=== PATIENT | female | born 1955 | race Caucasian/White ===

== ENCOUNTER 2016-05-03 20:27 | Outpatient (CLI) ==
[2016-05-03 20:53] VITALS: BMI 17.6
== END 2016-05-03 20:28 | disposition home or self-care (01) ==
LOC: AMBL 20:27
PROVIDERS: ATTEND Family Medicine
DX: R52 Pain, unspecified (principal); R69 Illness, unspecified; R41.0 Disorientation, unspecified; J44.9 Chronic obstructive pulmonary disease, unspecified

== ENCOUNTER 2016-05-03 20:39 | Emergency (ER) | payer OTHER ==
[2016-05-03] MEDS ORDERED: SODIUM CHLORIDE 1,000 ML IV STA ×2 (20:45)
[2016-05-03 20:53] VITALS: BP 94/65; TEMP 96; BMI 17.6
[2016-05-03] MEDS ORDERED: URO-JET MUCOUSMEMB STA (20:54)
[2016-05-03 21:05] LABS: ABG BASE EXCESS 7 (-2.0-2.0); ABG HCO3 29.9 (22.0-26.0); ABG PCO2 35.4 mmHg (35-45); ABG PH 7.534 (7.35-7.45); ABG TCO2 31 (22.0-28.0)
[2016-05-03 21:20] LABS: BASOPHILS # (AUTO) 0.1 K/uL (0-0.2); BASOPHILS % (AUTO) 0.2 % (0.0-3.0); EOSINOPHILS % (AUTO) 0.1 % (0.0-7.0); HEMATOCRIT 33.2 % (37.0-47.0); HEMOGLOBIN 10.6 g/dl (12.0-16.0); LYMPHOCYTES # (AUTO) 1.6 K/uL (0.60-3.4); LYMPHOCYTES % (AUTO) 4.4 (10.0-50.0); MEAN CORPUSCULAR HEMOGLOBIN 28.1 pg (27.0-31.0); MEAN CORPUSCULAR HGB CONC 31.9 (31.8-35.4); MEAN CORPUSCULAR VOLUME 88.1 fl (81.0-99.0); MONOCYTES # (AUTO) 1.9 K/uL (0.4-2.0); MONOCYTES % (AUTO) 5.1 (0-10); NEUTROPHILS % (AUTO) 88.2; PLATELET COUNT 855 10^3/uL (140-440); RED BLOOD COUNT 3.77 10^6/ul (4.20-5.40)
[2016-05-03 21:24] LABS: WHITE BLOOD COUNT 37.39 K/ul (4.6-10.2)
[2016-05-03] MEDS ORDERED: ZOSYN 3.375 GM 3.375 GM in SODIUM CHLORIDE 100 ML IV STA (21:28)
[2016-05-03 21:31] LABS: FLU INTERNAL QC INTERNAL QC VALID; RAPID FLU A NEGATIVE (NEGATIVE); RAPID FLU B NEGATIVE (NEGATIVE)
[2016-05-03 21:32] LABS: ADD URINE MICROSCOPIC YES; BILIRUBIN,URINE Negative (NEGATIVE); KETONES,URINE Negative (NEGATIVE); LEUKOCYTE ESTERASE ,URINE Negative (NEGATIVE); NITRITE,URINE Positive (NEGATIVE); PROTEIN,URINE Trace (NEGATIVE); URINE, BLOOD Negative (NEGATIVE)
[2016-05-03 21:32] LABS: ALBUMIN 1.7 g/dL (3.4-5.0); ALBUMIN/GLOBULIN RATIO 0.35; ANION GAP 22.3; BILIRUBIN,TOTAL 0.4 mg/dL (0.00-1.20); BUN/CREATININE RATIO 34.52; CALCIUM 8.5 mg/dL (8.2-10.2); CREATININE 0.84 mg/dL (0.60-1.30); POTASSIUM 3.3 mmol/L (3.5-5.10); TOTAL PROTEIN 6.6 g/dL (5.8-8.1)
[2016-05-03 21:33] LABS: BACTERIA,URINE 4+ (NOT PRESENT)
[2016-05-03 21:43] LABS: COCAIN SCREEN,URINE NEGATIVE (NEGATIVE)
[2016-05-03 21:45] LABS: ERYTHROCYTE SEDIMENTATION RATE 94 mm/hr (0-20); ESR INTERNAL QC INTERNAL QC VALID
[2016-05-03 22:08] LABS: ACETAMINOPHEN < 3 ug/ml (10-30); SALICYLATE < 5.0 mg/dL (2.8-20.0)
--- NOTE | 2016-05-03 22:21 | CT ---
EXAM: CT head without contrast 04/18/2016. Sagittal and coronal reformatted images obtained HISTORY: Trauma COMPARISON: None. FINDINGS: There is no evidence of intracranial hemorrhage. The midline is maintained. There is no hydrocephalus. Diffuse generalized atrophy. Chronic small vessel ischemic changes. No cerebellar tonsillar ectopia. Evaluation of the calvarium shows no fracture. The mastoid air cells are normal ly pneumatized. IMPRESSION: 1. No acute intracranial process. There is no skull fracture. No intracranial hemorrhage. 2. Generalized atrophy. Chronic small vessel ischemic changes. 3. Defects within the anterior and posterior arch of C1. Please refer to report of same day CT cer vical spine.
--- NOTE | 2016-05-03 22:29 | CT ---
EXAM: CT thoracic spine without intravenous contrast 05/03/2016. Sagittal and coronal reformatted images obtained HISTORY: Trauma COMPARISON: None. FINDINGS: Emphysematous changes. There is a large area of consolidation within the superior aspect of the left lower lobe. There are multiple areas of cavitation throughout this region. Further ev aluation of the chest would be of benefit. Additional areas of infiltrate extend through the left upper lobe as well as the left lung base. Kyphotic curve of the thoracic spine. Multilevel degenerative disc disease. Multilevel chronic deg enerative endplate change. Bulky anterior osteophyte formation. Anterior wedging configuration wit hin multiple central thoracic vertebral bodies appears chronic. The facet joints align normally. Scoliotic curvature with convexity to the right appears chronic. IMPRESSION: 1. Severe emphysema. 2. Consolidation and throughout the superior aspect the left lower lobe. There are multiple areas of cavitation throughout this region. Additional infiltrate extends through the left upper lobe and left lung base. Differential considerations include a cavitary pneumonia including bacterial, chriss al and mycobacterial process. Cavitary neoplasm cannot be excluded. Further evaluation of the ches t would be of benefit. 3. Severe degenerative changes of the thoracic spine. Multilevel severe degenerative endplate [place] ge. Chronic appearing end plate defects. Multilevel anterior wedging configuration appears chronic . 4. No acute post traumatic osseous abnormality of the thoracic spine.
--- NOTE | 2016-05-03 22:29 | CT ---
EXAM: Noncontrast CT examination of the cervical spine. Comparison: Radiographs performed on 03/30/2013. Reason for study: Trauma. FINDINGS: There are well corticated irregularities of the anterior and posterior arch of C1 likely healed fractures. Anterior cervical discectomy and fusion construct is seen spanning C3 to C6. The re is a 3 mm of anterior subluxation of the ACDF construct on the C7 vertebral body that does not ap pear significantly changed when compared to the radiographs performed on 03/30/2013. Imaging is dav ewhat limited due to diffuse osteopenia and artifact from metallic hardware. Otherwise, the vertebra l body heights and intervertebral body disc space heights are relatively well maintained. There is maintenance of the cervical lordosis without abnormal prevertebral soft tissue swelling. IMPRESSION: 1. Corticated, cortical irregularities are seen in the anterior and posterior arch of C1 that likel y represent healed fractures. 2. No obvious acute fracture or subluxation in the cervical spine.
--- NOTE | 2016-05-03 22:36 | CT ---
EXAM: CT chest without intravenous contrast 05/03/2016. Sagittal and coronal reformatted images ob tained HISTORY: Cough and hemoptysis COMPARISON: 11/30/2012 FINDINGS: Severe emphysematous change. The heart size is within normal limits. No pericardial eff usion. Consolidation is present throughout the superior portion of the left lower lobe. There are multiple areas of cavitation. Additional infiltrate extends into the left upper lobe as well as a left lung base. Differential considerations include cavitary pneumonia as well as neoplasm. Upper normal-caliber mediastinal lymphadenopathy. This is indeterminate. No acute osseous abnormality. Severe degenerative disc disease and degenerative endplate change of the thoracic spine. Limited views of the upper abdomen show no acute process. IMPRESSION: 1. Consolidation at the superior aspect of the left lower lobe. Multifocal cavitation. Differenti al considerations include cavitary pneumonia including bacterial, fungal and mycobacterial process. Cavitary neoplasm is not excluded. 2. Additional infiltrate extends into the left upper lobe and left lung base. 3. Indeterminate mediastinal lymphadenopathy. 4. Consolidation is also present within this region on chest radiograph performed 11/30/2012.
--- NOTE | 2016-05-03 22:36 | CT ---
EXAM: CT lumbar spine without contrast. HISTORY: Trauma COMPARISON: Same day CT pelvis TECHNIQUE: Serial axial images of the spine were obtained from the lower thoracic spine through the pelvis without contrast. These were viewed in multiple planes. FINDINGS: Vertebral bodies demonstrate multilevel degenerative disease with disc space narrowing at L4 - L5 and L5-S1. There is 0.4 cm of anterolisthesis of L3 on L4. There is significant facet art hropathy throughout the lumbosacral spine. The posterior and transverse processes are normal. L1-L2: There is a small broad-based disc bulge with facet arthropathy and no central or neural lobo inal narrowing. L2-L3: Broad-based disc bulge and facet arthropathy with no significant central or neural foraminal narrowing. L3-L4: Broad-based disc bulge, facet arthropathy and anterior listhesis contribute to moderate centr al narrowing and bilateral moderate to severe narrowing of the neural foramen. L4-L5: Broad-based disc bulge and facet arthropathy contribute to mild central and bilateral neural foraminal narrowing. L5-S1: Broad-based disc bulge with facet arthropathy contribute to bilateral moderate neural foramin al narrowing. Limited views of the soft tissues demonstrate emphysematous disease of the lungs and minimal left ba silar ground-glass. There is moderate atherosclerotic disease.. IMPRESSION: 1. No compression fracture with grade 1 anterolisthesis of L3 on L4. 2. Multilevel degenerative disease with facet arthropathy, most pronounced at L3-L4 with moderate c entral and bilateral moderate to severe neural foraminal narrowing. If further evaluation is clinic ally indicated, MRI may be obtained.
--- NOTE | 2016-05-03 22:41 | CT ---
Examination: Noncontrasted CT examination of the pelvis with axial, sagittal, and coronal reformatt ed imaging. Comparison: None available. Reason for study: Right hip pain after fall. FINDINGS: There is a displaced intertrochanteric fracture of the right femoral neck with adjacent s oft tissue swelling. No apparent dislocation is seen within the right hip. The right femoral head articulates with the bony acetabulum. No other acute osseous injuries are seen. The pelvic ring and left hip are unremarkable save for degenerative changes posterior to the iliac wings. There is atherosclerotic disease of the aorta and distal arterial vasculature. A Marte catheter bal loon is in place. Operative changes are seen within the pelvis. Degenerative disease of the lumbosac ral spine with loss of intervertebral body disc space height anterior and posterior arthrosis with f acet hypertrophy. Impression: 1. Displaced right intertrochanteric femur fracture. 2. No other acute osseous injuries are seen within the pelvis. 3. Degenerative disease of the lumbosacral spine and pelvis with atherosclerotic disease of the abd ominal vasculature. Imaging findings were faxed to [facility] emergency department at 2236 hours on the day of examination.
--- NOTE | 2016-05-03 22:56 | ED.PDOC ---
General ED Provider: Dr. GEREMIAS GARNETT-ER Chief Complaint: Non-specific Complaint Stated Complaint: shes coughing up blood and not eating--she fell and hurt her hip Time Seen by Physician: 20:40 Mode of Arrival: Ambulance Information Source: Patient, Family, EMT Exam Limitations: No limitations Primary Care Provider: NÉSTOR RON Nursing and Triage Documentation Reviewed and Agree: Yes Respiratory Complaint Exam - Respiratory Complaint/Exam Onset/Duration: 2 dasy Symptoms Are: Still present Timing: Constant Initial Severity: Mild Current Severity: Moderate Location: Unknown Character: Reports: Productive cough Aggravating: Reports: URI Alleviating: Reports: None Associated Signs and Symptoms: Reports: Fever, Wheezing, Hemoptysis, URI, Decreased oral intake. Denies: Rapid breathing, Dyspnea, Chills, Chest pain, Pleuritic chest pain, Dizziness, Calf pain, Calf swelling, Edema, Nasal congestion, Hoarseness, Sinus discomfort, Vomiting, Sore throat, Weight loss, Increased thirst, Increased appetite, Increased urination History of Healthcare-Acquired Pneumonia: No Related Surgical History: Reports: None Pulmonary Embolism Risk Factors: None Cardiac Risk Factors: Reports: Smoking Pseudomonas Risk Factors: Reports: None Tuberculosis Risk Factors: Reports: None Status Asthmaticus Risk Factors: Reports: None Home Oxygen Use: No Recent Stress Test: No Recent Echo/LV Function: No Current Antibiotic Use: No Current Asthma Medication Use: No Inadequate Respiratory Effort: No Dysphagia Present: No Stridor Present: No JVD Present: No Accessory Muscle Use: No Diminished Breath Sounds: Yes Grunting Respirations: No Kussmaul Respirations: No Differential Diagnoses: COPD Exacerbation, Pneumonia Non-Traumatic Chest Pain Syncope: EKG Performed Review of Systems - Review Of Systems Constitutional: Reports: No symptoms Eyes: Reports: No symptoms Ears, Nose, Mouth, Throat: Reports: No symptoms Respiratory: Reports: Cough Cardiac: Reports: No symptoms GI: Reports: No symptoms : Reports: No symptoms Musculoskeletal: Reports: Joint pain Skin: Reports: No symptoms Neurological: Reports: No symptoms Endocrine: Reports: No symptoms Hematologic/Lymphatic: Reports: No symptoms All Other Systems: Reviewed and Negative Past Medical History - Past Medical History Previously Healthy: Yes Endocrine: Reports: Unknown Cardiovascular: Reports: Unknown Respiratory: Reports: Unknown Hematological: Reports: Unknown Gastrointestinal: Reports: Unknown Genitourinary: Reports: Unknown Neuro/Psych: Reports: Unknown Musculoskeletal: Reports: Unknown Cancer: Reports: Unknown Last Menstrual Period: UNK - Surgical History General Surgical History: Reports: Unknown - Family History Family History: Reports: Unknown - Social History Smoking Status: Current every day smoker Hx Substance Use: No Alcohol Screening: None Physical Exam - Physical Exam Appearance: Well-appearing, No pain distress, Well-nourished Pain Distress: Mild Eyes: EFRA, EOMI, Conjunctiva clear ENT: Ears normal, Nose normal, Oropharynx normal Neck: Supple Respiratory: Airway patent, Breath sounds equal, Respirations nonlabored, Crackles, Rhonchi Cardiovascular: RRR, Pulses normal, No rub, No murmur GI/: Soft, Nontender, No masses, Bowel sounds normal, No Organomegaly Musculoskeletal: Normal strength, ROM intact, No edema, No calf tenderness Skin: Warm Neurological: Sensation intact Psychiatric: Affect appropriate, Mood appropriate Interpretation - Radiology Interpretation Radiology Interpretation By: Radiologist Radiology Results: Positive Exam Interpreted: CT Scan Physician Notification - Case Discussed Physician Notified: dr ron Time of Notification: 22:57 Critical Care Note - Critical Care Note Total Time (mins): 15 Course - Course Hematology/Chemistry: 05/03/16 21:00 05/03/16 21:00 Orders, Labs, Meds: Lab Review 05/03/16 05/03/16 05/03/16 20:00 20:43 21:00 WBC 37.39 H RBC 3.77 L Hgb 10.6 L Hct 33.2 L MCV 88.1 MCH 28.1 MCHC 31.9 RDW Coeff of Simona 16.8 H Plt Count 855 H Immature Gran % (Auto) 2.0 Neut % (Auto) 88.2 Lymph % (Auto) 4.4 L [place] % (Auto) 5.1 Eos % (Auto) 0.1 Baso % (Auto) 0.2 Immature Gran # (Auto) 0.7 Neut # 33.0 H Lymph # 1.6 [place] # 1.9 Eos # 0.0 Baso # 0.1 ESR 94 H D-Dimer 1.82 Puncture Site Lb O2 Saturation 87.0 L ABG pH 7.534 H* ABG pCO2 35.4 ABG pO2 46.0 L* ABG HCO3 29.9 H ABG Total CO2 31 H ABG Base Excess 7 H Isaac Test + FiO2 % 21.0 Sodium 137 Potassium 3.3 L Chloride 91 L Carbon Dioxide 27 Anion Gap 22.3 BUN 29 H Creatinine 0.84 Estimated GFR (MDRD) 69.00 BUN/Creatinine Ratio 34.52 Glucose 102 Calcium 8.5 Total Bilirubin 0.40 AST 18 ALT 14 Alkaline Phosphatase 313 H Total Protein 6.6 Albumin 1.7 L Globulin 4.9 Albumin/Globulin Ratio 0.35 Urine Color Urine Clarity Urine pH Ur Specific [place] Urine Protein Urine Glucose (UA) Urine Ketones Urine Blood Urine Nitrite Urine Bilirubin Urine Urobilinogen Ur Leukocyte Esterase Urine Microscopic WBC Ur Squamous Epith Cells Urine Bacteria Salicylate Level mg/dL < 5.0 Urine Opiates Screen Positive Ur Oxycodone Screen Positive Urine Methadone Screen Negative Ur Propoxyphene Screen Negative Acetaminophen < 3 L Ur Barbiturates Screen Negative U Tricyclic Antidepress Negative Ur Phencyclidine Scrn Negative Ur Amphetamine Screen Negative U Methamphetamines Scrn Negative U Benzodiazepines Scrn Positive Urine Cocaine Screen Negative U Cannabinoids Screen Negative Plasma/Serum Alcohol < 10.0 Influenza A (Rapid) Negative Influenza B (Rapid) Negative 05/03/16 21:05 WBC RBC Hgb Hct MCV MCH MCHC RDW Coeff of Simona Plt Count Immature Gran % (Auto) Neut % (Auto) Lymph % (Auto) [place] % (Auto) Eos % (Auto) Baso % (Auto) Immature Gran # (Auto) Neut # Lymph # [place] # Eos # Baso # ESR D-Dimer Puncture Site O2 Saturation ABG pH ABG pCO2 ABG pO2 ABG HCO3 ABG Total CO2 ABG Base Excess Isaac Test FiO2 % Sodium Potassium Chloride Carbon Dioxide Anion Gap BUN Creatinine Estimated GFR (MDRD) BUN/Creatinine Ratio Glucose Calcium Total Bilirubin AST ALT Alkaline Phosphatase Total Protein Albumin Globulin Albumin/Globulin Ratio Urine Color Yellow Urine Clarity Slightly Urine pH 6.0 Ur Specific [place] 1.025 Urine Protein Trace Urine Glucose (UA) Negative Urine Ketones Negative Urine Blood Negative Urine Nitrite Positive Urine Bilirubin Negative Urine Urobilinogen 1.0 Ur Leukocyte Esterase Negative Urine Microscopic WBC 0-2 Ur Squamous Epith Cells Not present Urine Bacteria 4+ Salicylate Level mg/dL Urine Opiates Screen Ur Oxycodone Screen Urine Methadone Screen Ur Propoxyphene Screen Acetaminophen Ur Barbiturates Screen U Tricyclic Antidepress Ur Phencyclidine Scrn Ur Amphetamine Screen U Methamphetamines Scrn U Benzodiazepines Scrn Urine Cocaine Screen U Cannabinoids Screen Plasma/Serum Alcohol Influenza A (Rapid) Influenza B (Rapid) Orders Category Date Time Status ABG DRAW REQUEST Stat CARDIO 05/03/16 20:44 Completed EKG-(ED ONLY) Stat CARDIO 05/03/16 20:44 Completed C collar [ED IMMOBILIZATION] .ONCE EMERGENCY 05/03/16 20:45 Active Marte [ED CATHETER INSERTION AND CARE] .ONCE EMERGENCY 05/03/16 20:54 Active IV [ED IV/MEDIPORT/POWERPORT] .ONCE EMERGENCY 05/03/16 20:44 Active ABG Stat LAB 05/03/16 20:43 Completed BLOOD ALCOHOL Stat LAB 05/03/16 21:00 Completed BLOOD CULTURE Stat LAB 05/03/16 21:00 Received CBC W/ AUTO DIFF Stat LAB 05/03/16 21:00 Completed COMPREHENSIVE METABOLIC PANEL Stat LAB 05/03/16 21:00 Completed D-DIMER Stat LAB 05/03/16 21:00 Completed ESR Stat LAB 05/03/16 21:00 Completed MOLECULAR GROUP A STREP Stat LAB 05/03/16 21:00 Results RAPID FLU A/B Stat LAB 05/03/16 21:00 Completed SALICYLATE Stat LAB 05/03/16 21:00 Completed SPUTUM CULTURE Stat LAB 05/03/16 21:11 Ordered STREP SCREEN Stat LAB 05/03/16 21:00 Results TYLENOL LEVEL [ACETAMINOPHEN] Stat LAB 05/03/16 21:00 Completed URINALYSIS C & S IF INDICATED Stat LAB 05/03/16 21:05 Completed URINE CULTURE Routine LAB 05/03/16 21:35 Received URINE DRUG SCREEN (RAPID FOR ED) [DRUG SCREEN, URINE, LAB 05/03/16 20:00 Completed RAPID] Stat 0.9 % Sodium Chloride [Saline Flush] MEDS 05/03/16 20:44 Ordered 1 syr IVF PRN PRN Lidocaine HCl [Uro-Jet] MEDS 05/03/16 20:54 Discontinued 10 ml [id number] ONCE STA Piperacillin Sodium/Tazobactam [Zosyn 3.375 gm] 3.375 MEDS 05/03/16 21:28 Discontinued gm 0.9 % Sodium Chloride [Sodium Chloride] 100 ml IV ONCE Sodium Chloride 0.9% [Sodium Chloride] 1,000 ml MEDS 05/03/16 20:45 Discontinued IV BOLUS Sodium Chloride 0.9% [Sodium Chloride] 1,000 ml MEDS 05/03/16 20:[address] CERVICAL SPINE W/O CONTRAST Stat RADS 05/03/16 20:[address] CHEST W/O CONTRAST Stat RADS 05/03/16 20:[address] HEAD W/O CONTRAST Stat RADS 05/03/16 20:[address] LUMBAR SPINE W/O CONTRAST Stat RADS 05/03/16 20:[address] PELVIS W/O CONTRAST Stat RADS 05/03/16 20:[address] THORACIC SPINE W/O CONTRAST Stat RADS 05/03/16 20:45 Completed Medications Generic Name Dose Route Start Last Admin Trade Name Freq PRN Reason Stop Dose Admin Sodium Chloride 1 syr 05/03/16 20:44 Saline Flush IVF PRN PRN To flush IV Discontinued Medications Generic Name Dose Route Start Last Admin Trade Name Freq PRN Reason Stop Dose Admin Sodium Chloride 1,000 mls @ 1,000 mls/hr 05/03/16 20:45 05/03/16 21:16 Sodium Chloride IV 05/03/16 21:44 1,000 mls/hr BOLUS STA Administration Sodium Chloride 1,000 mls @ 1,000 mls/hr 05/03/16 20:45 05/03/16 22:22 Sodium Chloride IV 05/03/16 21:44 1,000 mls/hr BOLUS STA Administration Piperacillin Sod/Tazobactam 100 mls @ 100 mls/hr 05/03/16 21:28 05/03/16 22: 22 Sod 3.375 gm/ Sodium Chloride IV 05/03/16 22:27 100 mls/hr ONCE STA Administration Lidocaine HCl 10 ml 05/03/16 20:54 05/03/16 21:16 Uro-Jet MUCOUSMEMB 05/03/16 20:55 Not Given ONCE STA Vital Signs: Temp Pulse Resp BP Pulse Ox 05/03/16 20:39 96.0 F L 82 16 94/65 92 L Departure - Departure Time of Disposition: 22:58 Disposition: TSF SHORT-TRM HOSP Discharge Problem: Pneumonia Qualifiers: Pneumonia type: due to unspecified organism Laterality: left Lung location: unspecified part of lung Qualifier Code: (J18.9) Pneumonia, unspecified organism Intertrochanteric fracture of left femur Qualifiers: Encounter type: initial encounter Fracture type: closed Qualifier Code: ( S72.142A) Displaced intertrochanteric fracture of left femur, initial encounter for closed fracture Instructions: Community Acquired Pneumonia (ED) Condition: Good Pt referred to PMD for follow-up: Yes Allergies/Adverse Reactions: Allergies Latex, Natural Rubber Adverse Reaction (Verified 05/03/16 20:54) Home Medications: Ambulatory Orders Alprazolam [Xanax] 1 mg PO PRN PRN 05/03/16 Aspirin [Lo-Dose Aspirin EC] 81 mg PO DAILY 05/03/16 Bupropion HCl [Wellbutrin Xl] 450 mg PO DAILY 05/03/16 Felodipine [Plendil] 10 mg PO DAILY 05/03/16 Fluoxetine HCl [Prozac] 20 mg PO DAILY 05/03/16 Furosemide [Lasix] 20 mg PO DAILY 05/03/16 Hydrocodone/Acetaminophen [Dixon 10-325 Tablet] 10 mg PO QID 05/03/16 Omeprazole [Prilosec] 20 mg PO DAILY 05/03/16 Tiotropium [place] [Spiriva] 18 mcg INH DAILY 05/03/16 Zolpidem Tartrate [Ambien Cr] 12.5 mg PO DAILY 05/03/16 Transfer Form Completed: Yes Disposition Discussed With: Patient, Family
== END 2016-05-03 23:42 | disposition short-term general hospital (02) ==
LOC: ED 20:39
DX: J18.9 Pneumonia, unspecified organism (principal); S72.142A Displaced intertrochanteric fracture of left femur, initial encounter for closed fracture; W19.XXXA Unspecified fall, initial encounter; F17.210 Nicotine dependence, cigarettes, uncomplicated; Z79.899 Other long term (current) drug therapy
CPT/HCPCS: 36415; 80053; 80306; 80307; 81001; 82803; 85025; 85379; 85651; 87040; 87070; 87086; 87651; 87804; 87880; 93005; 93010; 96361; 96365; 99285

== ENCOUNTER 2016-05-03 23:38 | Outpatient (CLI) ==
[2016-05-03 20:53] VITALS: BMI 17.6
== END 2016-05-03 23:39 | disposition home or self-care (01) ==
LOC: AMBL 23:38
PROVIDERS: ATTEND Family Medicine
DX: S72.001A Fracture of unspecified part of neck of right femur, initial encounter for closed fracture (principal); J18.9 Pneumonia, unspecified organism; R53.1 Weakness; J44.9 Chronic obstructive pulmonary disease, unspecified; R52 Pain, unspecified; R00.0 Tachycardia, unspecified; W19.XXXA Unspecified fall, initial encounter

== ENCOUNTER 2016-05-15 14:58 | Inpatient (IN) ==
[2016-05-15 15:19] VITALS: BMI 24.2
[2016-05-15 16:20] LABS: BASOPHILS % (AUTO) 0.2 % (0.0-3.0); EOSINOPHILS # (AUTO) 0.3 K/ul (0.0-0.7); EOSINOPHILS % (AUTO) 1.7 % (0.0-7.0); HEMATOCRIT 35.4 % (37.0-47.0); IMMATURE GRANULOCYTE % (AUTO) 3.1 % (0.0-5.0); LYMPHOCYTES # (AUTO) 1.5 K/uL (0.60-3.4); LYMPHOCYTES % (AUTO) 8.7 (10.0-50.0); MEAN CORPUSCULAR HEMOGLOBIN 28.9 pg (27.0-31.0); MEAN CORPUSCULAR HGB CONC 31.1 (31.8-35.4); MEAN CORPUSCULAR VOLUME 92.9 fl (81.0-99.0); MONOCYTES # (AUTO) 0.8 K/uL (0.4-2.0); NEUTROPHILS # (AUTO) 13.6 K/ul (2.0-6.9); NEUTROPHILS % (AUTO) 81.3; PLATELET COUNT 693 10^3/uL (140-440); RED BLOOD COUNT 3.81 10^6/ul (4.20-5.40); WHITE BLOOD COUNT 16.69 K/ul (4.6-10.2)
[2016-05-15] MEDS ORDERED: NON-FORMULARY MEDICATION (Alprazolam [Xanax] 1 MG) PO SCH ×22 (16:30)
[2016-05-15 16:43] LABS: ALBUMIN 1.8 g/dL (3.4-5.0); ALBUMIN/GLOBULIN RATIO 0.46; ANION GAP 15.6; BILIRUBIN,TOTAL 0.5 mg/dL (0.00-1.20); BUN/CREATININE RATIO 14.28; CALCIUM 8.7 mg/dL (8.2-10.2); CREATININE 0.63 mg/dL (0.60-1.30); POTASSIUM 4.6 mmol/L (3.5-5.10); TOTAL PROTEIN 5.7 g/dL (5.8-8.1)
--- NOTE | 2016-05-15 16:49 | RS.OTINEVL ---
Subjective - Patient information Date of Evaluation: 05/15/16 Date of Arrival on Unit: 05/15/16 Admitted From:: Facility Transfer Usual Living Arrangement: With Spouse Living Arrangement Comments: Pt lives at home with her . They are raising one of their grandchildren. Home Environment: House, Stairs (few), Rail Medical History Comments:: Pt fell and had a right hip pinning and is on 4 Liters of O2 at this time. Surgical History Comments:: Right hip pinning. Subjective Information/ Patient Comments:: Yes, I am tired. I want to sit up in my bed. - Level of function Prior to this admission, the patient could do the following:: Independent ADL's , Independent Ambulation, Participated in Social Activities Outside home Abilities prior to this admission: Pt was independent with ADLs prior to her fall. Current Level of Function: Partially Dependent Current Equipment Used at Home: Rolling walker, BSC, Pain Assessment - Pain Pain Score: 7 Side: right Pain Location Body Site: Hip Pain Aggravating Factors: ADL's, Changing Position, Exercise/Activity, Standing , Sitting, Walking Pain Alleviating Factors: Medication, Position Change, Sitting, Standing, Lying Supine Interventions - Objective Patient Orientation: Person, Place, Situation Current Interventions: IV's, Oxygen, Wound vac Observation: Pt is talking and not always making sense. Pt is very short of breath and appears to not always be there at times. Interventions - ROM Right Upper Extremity AROM: WFL's Left Upper Extremity AROM: WFL's - Strength Right Upper Extremity Strength: Mild Weakness Left Upper Extremity Strength: Mild Weakness - Sensation Right Upper Extremity Sensation: Intact/Normal Left Upper Extremity Sensation: Intact/Normal Balance - Sitting Balance Static Sitting Balance: Poor Dynamic Sitting Balance: Poor - Standing Balance Static Standing Balance: Poor Dynamic Standing Balance: Poor ADL Skills - Self Feeding Self Feeding: CGA - Grooming Grooming: Max Assist - Bathing Bathing UE: Mod Assist Bathing LE: Max Assist - Dressing Dressing UE: Mod Assist Dressing LE: Max Assist - Toilet Management Toileting Management: Min Assist, 2 person assist Functional Mobility - Bed Mobility Rolling R/L: Mod Assist, 2 person assist Scooting: Mod Assist, 2 person assist Supine to Sit: Mod Assist, 2 person assist Sit to Supine: Mod Assist, 1 person assist - Transfers Sit to Stand: Min Assist, 2 person assist Stand to Sit: Min Assist, 2 person assist Stand Pivot Transfers: Min Assist, 2 person assist Additional Treatment Performed - Additional units charged ADL: 15 - Time with patient Total treatment time: 32 Activities Patient Interests:: Visiting/Socializing Patient Education Patient Education: Home Exercise Program, Home Safety, Education of Plan of Care Teaching Recipient: Patient, Family Teaching Methods: Discussion Assessment Problem List:: Decreased level of function, Requires training/education, Decreased safety/Risk of falls, Weakness, Pain limits previous level of function Rehab Potential: Good Further Therapy Indicated?: Yes Short Term Goals - Goals GOAL 1: Pt to tolerate 10 minutes of activity with rests PRN Goal to be met by: 05/22/16 GOAL 2: Pt to increase her bed mobility to minimal assist. 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 Goal to be met by: 05/29/16 GOAL 2: Pt to increase her independence of ADLS to modified Independent. Goal to be met by: 05/29/16 GOAL 3: Pt to increase her BUE strength to 4+/5. Goal to be met by: 05/29/16 Plan Plan of Care: Therapeutic EX, Neuromuscular Re-Educ, Therapeutic Activity, Self- Care/Home Management Frequency of Treatment: 1-2 X day, as tolerated Duration of Treatment: 2 Weeks Anticipated Discharge Destination: Home
[2016-05-15] MEDS: DUONEB NEB SCH ×2 (17:08→21:19)
[2016-05-15] MEDS: XANAX PO SCH ×2 (17:20→21:27)
[2016-05-15] MEDS: XARELTO PO SCH (17:21)
[2016-05-15] MEDS: NORCO 7.5-325 PO PRN (17:24)
[2016-05-15] MEDS: PULMICORT 0.5 MG/2 ML NEB SCH (18:08)
--- NOTE | 2016-05-15 19:04 | PCM ---
- H&P H&P for TCU Transfers: H&P for TCU Transfers from Outside Facilities
[2016-05-15] MEDS: FERROUS SULFATE PO SCH (21:26)
[2016-05-15] MEDS: COLACE PO SCH (21:26)
[2016-05-15] MEDS: K-DUR PO SCH (21:26)
[2016-05-16] MEDS: DUONEB NEB SCH ×6 (01:20→21:03)
[2016-05-16] MEDS: NORCO 7.5-325 PO PRN ×2 (02:59→17:52)
[2016-05-16] MEDS: PULMICORT 0.5 MG/2 ML NEB SCH ×2 (04:50→16:59)
[2016-05-16] MEDS: LASIX TAB PO SCH (05:51)
[2016-05-16] MEDS: PRILOSEC PO SCH (05:51)
[2016-05-16] MEDS: ASPIRIN EC PO SCH (08:42)
[2016-05-16] MEDS: COLACE PO SCH ×2 (08:44→22:34)
[2016-05-16] MEDS: CALCIUM 500 + VIT D 200 MG TABLET PO SCH (08:44)
[2016-05-16] MEDS: FERROUS SULFATE PO SCH ×2 (08:45→22:34)
[2016-05-16] MEDS: FOLIC ACID PO SCH (08:45)
[2016-05-16] MEDS: PLENDIL PO SCH (08:46)
[2016-05-16] MEDS: MULTIVITAMIN PO SCH (08:46)
[2016-05-16] MEDS: K-DUR PO SCH ×2 (08:46→22:34)
[2016-05-16] MEDS: PROZAC PO SCH (08:47)
[2016-05-16] MEDS: XANAX PO SCH ×4 (08:47→22:33)
[2016-05-16] MEDS ORDERED: MULTIVITS CA MINERALS PO SCH (09:00)
[2016-05-16] MEDS ORDERED: [UNRECOGNIZED DRUG - OTHER] PO SCH (09:00)
[2016-05-16] MEDS ORDERED: BUPROPION HCL 450 MG PO SCH (09:00)
[2016-05-16] MEDS ORDERED: IRON PO SCH (09:00)
[2016-05-16] MEDS: NON-FORMULARY MEDICATION (Bupropion Hcl [Wellbutrin Xl] 150 MG) PO SCH (09:57)
[2016-05-16] MEDS: NON-FORMULARY MEDICATION (Bupropion Hcl [Wellbutrin Xl] 300 MG) PO SCH (09:57)
--- NOTE | 2016-05-16 10:57 | PN ---
DATE OF VISIT: 05/16/16 SUBJECTIVE: Tricia fell and developed a hip fracture; had to go to [facility] to have it repaired. She had respiratory symptoms of possible bronchitis even prior to the fall on admission. She was felt to definitely be in a COPD exacerbation and/or pneumonia perioperatively. Postoperatively, with pain medication and medical issues she developed confusion/encephalopathy/delirium and it took days to slowly improve from all the above. Her therapy at [facility] was very slow paced and did not accomplish that which would allow her to go home. The swing bed was an option and she was transferred here on 05/15. She did not sleep well last night. She remains periodically on and off confused. While at [facility] she had drainage from her incision; the wound vac was started. She has plans to see Dr. Quintana early next week for close followup and still has her eloy intact. She currently denies pain. OBJECTIVE: V/S: Temperature 97.6, pulse 100, BP 127/85, respiratory rate 20. 02 sat 91% on 4L. GENERAL: No obvious distress. No change from general appearance and baseline. CHEST: Clear but markedly diminished and barreled. CARDIOVASCULAR: S1, S2 without murmur or peripheral edema. GI: Nontender. MUSCULOSKELETAL: She can move four quadrants. No paralysis noted. PSYCHIATRIC: She knows me, knows that she is at [facility]. She does not remember the date. Her conversation was somewhat tangential, non purposeful and even at some times inaccurate. LABS/X-RAYS: White count 17, hemoglobin 11, platelets as usual 693; glucose 68. Protein and albumin low. ASSESSMENT: # POSTOP RIGHT HIP PINNING FOR FRACTURE # GAIT DECLINE - ACUTE ON CHRONIC ISSUES # COPD WITH RECENT POTENTIAL EXACERBATION # PNEUMONIA - WITH THE ABOVE # DELIRIUM/ENCEPHALOPATHY/CONFUSION - ON AND OFF RELATED TO OTHER MEDICAL DIAGNOSES, MEDICATIONS # INSOMINIA PLAN: 1. Continue to work with medications to maintain stability of her cardiopulmonary and neurologic situation; for the insomnia we really may have to use some additional medicines tonight and see if she can tolerate. 2. Working with PT to try and increase her abilities, ambulation in particular for eventual discharge home. 3. Working with other support specialist such as nutrition, diet, nursing to improve her malnutrition and others. AFSHAN
--- NOTE | 2016-05-16 16:35 | RS.PTINEVL ---
Subjective - Patient information Date of Evaluation: 05/16/16 Date of Arrival on Unit: 05/15/16 Admitted From:: Facility Transfer ([facility]) Usual Living Arrangement: With Spouse Home Environment: House, Stairs (many) LATEX ALLERGY?: No Subjective Information/ Patient Comments:: Patient reports that she is very weak. States the right hip is tolerable. She thinks she had pain medication this morning. - Level of function Prior to this admission, the patient could do the following:: Independent ADL's , Independent Ambulation, Participated in Social Activities Outside home Current Level of Function: Partially Dependent Current Equipment Used at Home: Rolling walker, BSC, Interventions - Objective Patient Orientation: Person Current Interventions: Oxygen (4 L via NC), Wound vac (right hip) Range of Motion - ROM Right Lower Extremity AROM: Moderate limitation (hip) Left Lower Extremity AROM: WFL's Muscle Strength - Muscle Strength Right Upper Extremity Strength: Severe Weakness Left Upper Extremity Strength: Severe Weakness Right Lower Extremity Strength: Severe Weakness Left Lower Extremity Strength: Severe Weakness Sensation - Sensation Right Lower Extremity Sensation: Intact/Normal Left Lower Extremity Sensation: Intact/Normal Coordination - Tests Bilateral Heel to Ruiz: Moderate Deviation Toe Tapping: Moderate Deviation Balance - Sitting Balance and Reactions Static Sitting Balance: Fair Dynamic Sitting Balance: Fair (-) - Standing Balance and Reactions Static Standing Balance: Poor (+) Dynamic Standing Balance: Poor Functional Mobility - Bed Mobility Rolling R/L: Min Assist, Mod Assist, 2 person assist, Verbal Cues, Tactile Cues Scooting: Min Assist, Mod Assist, 2 person assist, Verbal Cues, Tactile Cues Supine to Sit: Min Assist, Mod Assist, 2 person assist, Verbal Cues, Tactile Cues Sit to Supine: Mod Assist, 2 person assist, Verbal Cues, Tactile Cues - Transfers Sit to Stand: Mod Assist, 2 person assist, Verbal Cues, Tactile Cues Stand to Sit: Min Assist, Mod Assist, 2 person assist, Verbal Cues, Tactile Cues Stand Pivot Transfers: Mod Assist, 2 person assist, Verbal Cues, Tactile Cues - Safety Awareness Safety Awareness: Poor Ambulation - Ambulation Weight Bearing Status: WBAT Assistive Device Used: Rolling Walker Distance: 15 feet rest, 45 feet then rest, 20 feet to chair Assistance needed with Ambulation: Mod Assist, 2 person assist, Verbal Cues, Tactile Cues Gait Deviations: Narrow Based gait, Shuffling gait, Forward posture, Scissor gait, Lacks step continuity Factors Affecting Ambulation: Decreased Balance, Breathing/O2 Saturation, Weakness, Decreased Coordination, Decreased ROM (right hip), Decreased Safety, Limited Endurance Treatment time - Time with patient Total treatment time: 32 (mins) Assessment - Assessment Problem List:: Decreased level of function, Requires training/education, Decreased safety/Risk of falls, Weakness, Pain limits previous level of function Rehab Potential: Good Further Therapy Indicated?: Yes Short Term Goals GOAL #1: Sit to stand transfers with CGA of one, pushing with UE from seat. Goal to be met by: 05/23/16 GOAL #2: Bed mobility with CGA of one and verbal cues. Goal to be met by: 05/23/16 GOAL #3: Pt able to amb with RW 100 feet with good base of support w/ min of one. Goal to be met by: 05/23/16 Longterm Goals GOAL #1: All bed mobility independent. Goal to be met by: 06/06/16 GOAL #2: Transfers with SBA with good safety. Goal to be met by: 06/06/16 GOAL #3: Pt will amb with RW household distances w/ CGA of one and good safety. Goal to be met by: 06/06/16 Plan Plan of Care: Therapeutic EX, Neuromuscular Re-Educ, Therapeutic Activity, Self- Care/Home Management Frequency of Treatment: 1-2 X day, as tolerated Duration of Treatment: 3 Weeks Anticipated Discharge Destination: Home (with spouse)
[2016-05-16] MEDS: XARELTO PO SCH (16:54)
[2016-05-17] MEDS: NORCO 7.5-325 PO PRN ×4 (00:39→21:14)
[2016-05-17] MEDS: DUONEB NEB SCH ×6 (00:53→22:42)
[2016-05-17] MEDS: PULMICORT 0.5 MG/2 ML NEB SCH ×2 (05:01→17:01)
[2016-05-17] MEDS: LASIX TAB PO SCH (06:05)
[2016-05-17] MEDS: PRILOSEC PO SCH (06:05)
[2016-05-17] MEDS: ASPIRIN EC PO SCH (08:21)
[2016-05-17] MEDS: PROZAC PO SCH (08:21)
[2016-05-17] MEDS: XANAX PO SCH ×4 (08:21→21:14)
[2016-05-17] MEDS: COLACE PO SCH ×2 (08:21→21:13)
[2016-05-17] MEDS: FERROUS SULFATE PO SCH ×2 (08:21→21:14)
[2016-05-17] MEDS: K-DUR PO SCH ×2 (08:21→21:14)
[2016-05-17] MEDS: NON-FORMULARY MEDICATION (Bupropion Hcl [Wellbutrin Xl] 300 MG) PO SCH (08:22)
[2016-05-17] MEDS: CALCIUM 500 + VIT D 200 MG TABLET PO SCH (08:22)
[2016-05-17] MEDS: FOLIC ACID PO SCH (08:22)
[2016-05-17] MEDS: NON-FORMULARY MEDICATION (Bupropion Hcl [Wellbutrin Xl] 150 MG) PO SCH (08:22)
[2016-05-17] MEDS: PLENDIL PO SCH (08:22)
[2016-05-17] MEDS: MULTIVITAMIN PO SCH (08:22)
[2016-05-17] MEDS: XARELTO PO SCH (17:47)
[2016-05-18] MEDS: DUONEB NEB SCH ×6 (01:44→21:03)
[2016-05-18] MEDS: NORCO 7.5-325 PO PRN ×3 (03:23→18:01)
[2016-05-18] MEDS: PULMICORT 0.5 MG/2 ML NEB SCH ×2 (05:29→17:05)
[2016-05-18] MEDS: LASIX TAB PO SCH (06:04)
[2016-05-18] MEDS: PRILOSEC PO SCH (06:04)
[2016-05-18] MEDS: FOLIC ACID PO SCH (08:08)
[2016-05-18] MEDS: NON-FORMULARY MEDICATION (Bupropion Hcl [Wellbutrin Xl] 300 MG) PO SCH (08:08)
[2016-05-18] MEDS: K-DUR PO SCH ×2 (08:08→20:55)
[2016-05-18] MEDS: COLACE PO SCH ×2 (08:08→20:56)
[2016-05-18] MEDS: FERROUS SULFATE PO SCH ×2 (08:08→20:56)
[2016-05-18] MEDS: PLENDIL PO SCH (08:08)
[2016-05-18] MEDS: NON-FORMULARY MEDICATION (Bupropion Hcl [Wellbutrin Xl] 150 MG) PO SCH (08:08)
[2016-05-18] MEDS: ASPIRIN EC PO SCH (08:09)
[2016-05-18] MEDS: CALCIUM 500 + VIT D 200 MG TABLET PO SCH (08:09)
[2016-05-18] MEDS: PROZAC PO SCH (08:09)
[2016-05-18] MEDS: XANAX PO SCH ×4 (08:09→20:56)
[2016-05-18] MEDS: MULTIVITAMIN PO SCH (08:09)
[2016-05-18] MEDS: XARELTO PO SCH (17:09)
[2016-05-19] MEDS: NORCO 7.5-325 PO PRN ×4 (00:47→23:00)
[2016-05-19] MEDS: DUONEB NEB SCH ×6 (01:31→22:55)
[2016-05-19] MEDS: PULMICORT 0.5 MG/2 ML NEB SCH ×2 (05:12→18:07)
[2016-05-19] MEDS: PRILOSEC PO SCH (05:49)
[2016-05-19] MEDS: LASIX TAB PO SCH (05:50)
[2016-05-19] MEDS: XANAX PO SCH ×4 (08:00→20:19)
[2016-05-19] MEDS: NON-FORMULARY MEDICATION (Bupropion Hcl [Wellbutrin Xl] 300 MG) PO SCH (08:45)
[2016-05-19] MEDS: PROZAC PO SCH (08:46)
[2016-05-19] MEDS: MULTIVITAMIN PO SCH (08:46)
[2016-05-19] MEDS: PLENDIL PO SCH (08:46)
[2016-05-19] MEDS: COLACE PO SCH ×2 (08:46→20:19)
[2016-05-19] MEDS: CALCIUM 500 + VIT D 200 MG TABLET PO SCH (08:46)
[2016-05-19] MEDS: NON-FORMULARY MEDICATION (Bupropion Hcl [Wellbutrin Xl] 150 MG) PO SCH (08:46)
[2016-05-19] MEDS: K-DUR PO SCH ×2 (08:46→20:19)
[2016-05-19] MEDS: FERROUS SULFATE PO SCH ×2 (08:46→20:19)
[2016-05-19] MEDS: FOLIC ACID PO SCH (08:47)
[2016-05-19] MEDS: ASPIRIN EC PO SCH (08:47)
[2016-05-19] MEDS: XARELTO PO SCH (17:24)
[2016-05-20] MEDS: DUONEB NEB SCH ×6 (02:09→22:47)
[2016-05-20] MEDS: PULMICORT 0.5 MG/2 ML NEB SCH ×2 (04:54→17:05)
[2016-05-20] MEDS: PRILOSEC PO SCH (05:34)
[2016-05-20] MEDS: LASIX TAB PO SCH (05:34)
[2016-05-20] MEDS: NORCO 7.5-325 PO PRN ×3 (05:35→21:07)
[2016-05-20] MEDS: ASPIRIN EC PO SCH (08:11)
[2016-05-20] MEDS: PLENDIL PO SCH (08:11)
[2016-05-20] MEDS: PROZAC PO SCH (08:11)
[2016-05-20] MEDS: COLACE PO SCH ×2 (08:11→20:40)
[2016-05-20] MEDS: FERROUS SULFATE PO SCH ×2 (08:12→20:40)
[2016-05-20] MEDS: XANAX PO SCH ×4 (08:12→20:41)
[2016-05-20] MEDS: FOLIC ACID PO SCH (08:12)
[2016-05-20] MEDS: CALCIUM 500 + VIT D 200 MG TABLET PO SCH (08:12)
[2016-05-20] MEDS: K-DUR PO SCH ×2 (08:12→20:40)
[2016-05-20] MEDS: MULTIVITAMIN PO SCH (08:13)
[2016-05-20] MEDS: NON-FORMULARY MEDICATION (Bupropion Hcl [Wellbutrin Xl] 150 MG) PO SCH (08:18)
[2016-05-20] MEDS: NON-FORMULARY MEDICATION (Bupropion Hcl [Wellbutrin Xl] 300 MG) PO SCH (08:18)
--- NOTE | 2016-05-20 11:40 | DI ---
Examination: Two radiographic images of the right hip. Comparison: CT scan of the head performed on 05/03/2016. Reason for study: Right hip fracture status post surgery. FINDINGS: There has been interval intermedullary nail and femoral neck fixation of the previously d escribed right intertrochanteric femoral neck fracture. Cutaneous eloy and surgical drain sugges t the patient is in the immediate postoperative period. No evidence of periprosthetic fracture or h ardware complication. Anatomic alignment as well maintained. The femoral head articulates with the acetabula. Impression: Postoperative changes after fixation of the previously described right intertrochanteri c femoral neck fracture.
--- NOTE | 2016-05-20 14:53 | PN ---
DATE OF VISIT: 05/19/16 - SWING BED SUBJECTIVE: Tricia became ill at home before falling and breaking her hip. She had several days of increased cough and fatigue and others. She has significant COPD, emphysema and prior to her fracture, was even still smoking. She has chronic pain; she takes various medications including antianxieties and others and stays somewhat sedated. She fell at home breaking her hip. She went to [facility] and despite having the pneumonia on admission, acute on chronic respiratory failure, she was taken to surgery the next day. Postoperative situation was complicated by delirium then pneumonia, on and off respiratory failure/ exacerbation and therefore not developing the ability to ambulate well enough at all to go home. Once it became obvious that her stay was going to be prolonged, I suggested [place] swing bed and she accepted. Since here, she can only walk a short distance without developing sats into the mid 80's. She has slowly became less confused though still on occasion will occur. Her appetite is slowly improving where she is beginning to eat a little and taking her supplements. She has not smoked since the fracture. She has pain in the hip and she continues with a wound vac. OBJECTIVE: V/S: Temperature 97.4, pulse 82, respirations 18, BP 108/72. GENERAL: Older than stated age, sitting in a chair in no acute distress. INTEGUMENT: Turgor is adequate, slight swelling in the right lower extremity. HEENT: Facial symmetry. Pupils are equal. Speech is soft spoken. NECK: No mass or thyroid. CHEST: Markedly diminished barreled; no wheezing or dullness to percussion. CARDIOVASCULAR: S1, S2 without murmur. Edema in the right leg as noted. GI: Protuberant due to mild kyphosis but soft, nontender. MUSCULOSKELETAL/NEUROLOGIC: She knew me, the hospital but was wrong on the date. She could move four quadrants equally, had facial symmetry and had purposeful conversation though it was a shallow level of understanding. LABS/X-RAYS: Admission white count was 16 on the first, hemoglobin 11 and chemistries then were abnormal: sodium 134, glucose 68. ASSESSMENT: # Acute gait decline - brought on by all the above. # Right hp fracture - convalescing. # Incision with dehiscence. # Wound vac. # Right hip fracture - postop. # Anemia - mild. # Iron deficiency - replaced. # Delirium - perioperative. # Pneumonia - partially treated. # COPD exacerbation. # COPD. # Chronic respiratory failure with acute exacerbation and periodic hypoxemia (without hypercarbia). # Malnutrition. # Anticoagulation - Xarelto indication post op hip. PLAN: 1. We continue the approach with no antibiotics but treatment for COPD and oxygen support. The support needs to be both at rest and walking. 2. Continue therapy. 3. Continue nutritional support. 4. She has an appointment with Dr. Quintana this week to review her wound and have sutures removed when it is time. 5. I have advised her for her to consider going home but she has a great deal of improvement to make and it certainly will probably take us through the whole week. AFSHAN
[2016-05-20] MEDS: XARELTO PO SCH (17:21)
[2016-05-21] MEDS: DUONEB NEB SCH ×6 (02:06→21:12)
[2016-05-21] MEDS: PULMICORT 0.5 MG/2 ML NEB SCH ×2 (05:01→19:38)
[2016-05-21] MEDS: PRILOSEC PO SCH (05:43)
[2016-05-21] MEDS: LASIX TAB PO SCH (05:43)
[2016-05-21] MEDS: NORCO 7.5-325 PO PRN ×2 (07:10→17:05)
[2016-05-21] MEDS: COLACE PO SCH ×2 (08:53→21:22)
[2016-05-21] MEDS: CALCIUM 500 + VIT D 200 MG TABLET PO SCH (08:53)
[2016-05-21] MEDS: MULTIVITAMIN PO SCH (08:53)
[2016-05-21] MEDS: NON-FORMULARY MEDICATION (Bupropion Hcl [Wellbutrin Xl] 150 MG) PO SCH (08:53)
[2016-05-21] MEDS: NON-FORMULARY MEDICATION (Bupropion Hcl [Wellbutrin Xl] 300 MG) PO SCH (08:53)
[2016-05-21] MEDS: PLENDIL PO SCH (08:53)
[2016-05-21] MEDS: FOLIC ACID PO SCH (08:55)
[2016-05-21] MEDS: XANAX PO SCH ×4 (08:55→21:22)
[2016-05-21] MEDS: ASPIRIN EC PO SCH (08:55)
[2016-05-21] MEDS: K-DUR PO SCH ×2 (08:55→21:22)
[2016-05-21] MEDS: PROZAC PO SCH (08:55)
[2016-05-21] MEDS: FERROUS SULFATE PO SCH ×2 (08:55→21:22)
[2016-05-21] MEDS: XARELTO PO SCH (17:05)
[2016-05-22] MEDS: DUONEB NEB SCH ×6 (01:00→21:03)
[2016-05-22] MEDS: PULMICORT 0.5 MG/2 ML NEB SCH ×2 (05:09→17:17)
[2016-05-22 05:33] LABS: BASOPHILS # (AUTO) 0.1 K/uL (0-0.2); BASOPHILS % (AUTO) 0.4 % (0.0-3.0); EOSINOPHILS # (AUTO) 0.3 K/ul (0.0-0.7); EOSINOPHILS % (AUTO) 2.1 % (0.0-7.0); HEMATOCRIT 39.2 % (37.0-47.0); HEMOGLOBIN 12.3 g/dl (12.0-16.0); LYMPHOCYTES # (AUTO) 1.5 K/uL (0.60-3.4); LYMPHOCYTES % (AUTO) 10.4 (10.0-50.0); MEAN CORPUSCULAR HEMOGLOBIN 29.2 pg (27.0-31.0); MEAN CORPUSCULAR HGB CONC 31.4 (31.8-35.4); MEAN CORPUSCULAR VOLUME 93.1 fl (81.0-99.0); MONOCYTES % (AUTO) 7.4 (0-10); NEUTROPHILS # (AUTO) 11.1 K/ul (2.0-6.9); NEUTROPHILS % (AUTO) 78.7; PLATELET COUNT 426 10^3/uL (140-440); RED BLOOD COUNT 4.21 10^6/ul (4.20-5.40); WHITE BLOOD COUNT 14.12 K/ul (4.6-10.2)
[2016-05-22 05:38] LABS: ANION GAP 12.8; BUN/CREATININE RATIO 20.31; CALCIUM 8.8 mg/dL (8.2-10.2); CREATININE 0.64 mg/dL (0.60-1.30); POTASSIUM 4.8 mmol/L (3.5-5.10)
[2016-05-22] MEDS: LASIX TAB PO SCH (05:43)
[2016-05-22] MEDS: NORCO 7.5-325 PO PRN ×3 (05:43→20:38)
[2016-05-22] MEDS: PRILOSEC PO SCH (05:43)
[2016-05-22] MEDS: K-DUR PO SCH ×2 (08:14→20:38)
[2016-05-22] MEDS: NON-FORMULARY MEDICATION (Bupropion Hcl [Wellbutrin Xl] 300 MG) PO SCH (08:14)
[2016-05-22] MEDS: NON-FORMULARY MEDICATION (Bupropion Hcl [Wellbutrin Xl] 150 MG) PO SCH (08:14)
[2016-05-22] MEDS: PROZAC PO SCH (08:15)
[2016-05-22] MEDS: CALCIUM 500 + VIT D 200 MG TABLET PO SCH (08:15)
[2016-05-22] MEDS: ASPIRIN EC PO SCH (08:15)
[2016-05-22] MEDS: FOLIC ACID PO SCH (08:15)
[2016-05-22] MEDS: PLENDIL PO SCH (08:15)
[2016-05-22] MEDS: COLACE PO SCH ×2 (08:15→20:38)
[2016-05-22] MEDS: MULTIVITAMIN PO SCH (08:15)
[2016-05-22] MEDS: FERROUS SULFATE PO SCH ×2 (08:15→20:38)
[2016-05-22] MEDS: XANAX PO SCH ×4 (08:16→20:38)
--- NOTE | 2016-05-22 11:33 | PN ---
DATE OF VISIT: 05/21/16 - SWING BED SUBJECTIVE: Tricia was admitted here after becoming ill at home with a respiratory decline; she had chronic lung disease of a significant magnitude and chronic respiratory failure. She developed what could have been a bronchitis at nighttime and was admitted to [facility], had an infiltrate. She was treated there as pneumonia. What took her to [facility] is that she fell and broke her hip. She came through [facility] and was transferred. She had her surgery and convalesced through the ICU to the floor with a owen course of confusion and up and down respiratory failure. It became obvious that she did not have the strength or capability of going home; therefore, was transferred here. She initially arrived here with a wound vac because of a serous drainage coming from the right hip incision. Since here she slowly improved; she is less fatigued with a little more energy and an improved appetite and actually eating and taking Boost. She has had limited walking; and today the wound vac was removed at Dr. Quintana's. She has been less confused slowly; but intermittent periods of forgetfulness. OBJECTIVE: V/S: Temperature 97.6, pulse 92, respiratory rate 20, BP 121/84. GENERAL: Older than stated age white female in no obvious distress. INTEGUMENT: She has a 10 cm raised area over the right incision, firm to slightly fluctuant. There is no drainage, no induration or erythema. Mild tenting of arms. HEENT: Facial symmetry. Pupils are equal. NECK: No mass or thyroid. CHEST: Markedly diminished but clear; moderately barreled. CARDIOVASCULAR: S1, S2 without murmur or peripheral edema. ASSESSMENT: # POSTOP RIGHT HIP REPAIR (FOR FRACTURE) # GAIT DECLINE - ACUTE ON CHRONIC # COPD/COPD EXACERBATION - IMPROVED # PNEUMONIA - IMPROVED # MALNUTRITION WITH PROTEIN AND CALORIC COMPONENTS # POSTOP DELIRIUM/ENCEPHALOPATHY/CONFUSION SLOWLY IMPROVING # RIGHT HIP DRAINAGE - SEROMA VERSUS HEMATOMA # POSTOP ANEMIA PLAN: 1. Continue therapy. 2. Medicines reviewed - same. 3. Since it has been 6 days since labs, will get a CBC and BMP in the morning. 4. Discharge plan at this point is still for home if she can reach enough improvement. MTDD
[2016-05-22] MEDS: XARELTO PO SCH (16:15)
[2016-05-22] MEDS ORDERED: DIFLUCAN PO STA (17:12)
[2016-05-23] MEDS: DUONEB NEB SCH ×6 (01:25→21:20)
[2016-05-23] MEDS ORDERED: XANAX ONE (03:54)
[2016-05-23] MEDS: PULMICORT 0.5 MG/2 ML NEB SCH ×2 (05:30→17:00)
[2016-05-23] MEDS: NORCO 7.5-325 PO PRN ×4 (05:39→23:37)
[2016-05-23] MEDS: LASIX TAB PO SCH (05:39)
[2016-05-23] MEDS: PRILOSEC PO SCH (05:40)
[2016-05-23] MEDS ORDERED: XANAX PO SCH (06:00)
[2016-05-23] MEDS: ASPIRIN EC PO SCH (08:35)
[2016-05-23] MEDS: NON-FORMULARY MEDICATION (Bupropion Hcl [Wellbutrin Xl] 150 MG) PO SCH (08:35)
[2016-05-23] MEDS: FERROUS SULFATE PO SCH ×2 (08:36→20:58)
[2016-05-23] MEDS: CALCIUM 500 + VIT D 200 MG TABLET PO SCH (08:36)
[2016-05-23] MEDS: NON-FORMULARY MEDICATION (Bupropion Hcl [Wellbutrin Xl] 300 MG) PO SCH (08:36)
[2016-05-23] MEDS: COLACE PO SCH ×2 (08:36→20:57)
[2016-05-23] MEDS: PROZAC PO SCH (08:37)
[2016-05-23] MEDS: MULTIVITAMIN PO SCH (08:37)
[2016-05-23] MEDS: FOLIC ACID PO SCH (08:37)
[2016-05-23] MEDS: K-DUR PO SCH ×2 (08:37→20:58)
[2016-05-23] MEDS: PLENDIL PO SCH (08:37)
--- NOTE | 2016-05-23 10:48 | HP ---
SOURCE: The source of this information is prior knowledge of the patient, PATIENT PROFILE: The patient is a 60-year-old female resident of [place], [place]. She was cooperative. CHIEF COMPLAINT: "I broke my hip." BRIEF HISTORY OF PRESENT ILLNESS: The patient fell slipping at home and had pain in her hip. She went to [facility] where she was found to have a nondisplaced fracture. She has known osteoporosis and has been advised through declined intervention. She was felt to be stable enough for transfer; she was sent to ICU at [facility] to eventually deal with the hip fracture. Other problems discovered were an infiltrate on her chest x-ray; left lower lobe. On 03/29/2016 she called the office with concern of cough and wanted a refill of antibiotics, steroids and was given that. She has COPD and a long history of smoking. She also has a history of frequent abnormal chest x-rays even with cavitary appearances and at times concerns for cancer; to this point with Dr. Carlson and finding only benign issues. She says since March, she has had an ongoing cough productive on occasion but did not notice that she was recently having any fever. Additionally , at [place], her potassium was 3.3; her initial care has already corrected that to 3.5. Her urine was 4+ bacteria. She denies dysuria, hematuria; her hemoglobin was 10.6 and with the fluids given at [place] (she was bolused), her hemoglobin is now 8.8. She has a diagnosis of hypertension and her blood pressure at [place] was initially in the 80s. She has chronic depression and this is made extremely worse by her daughter being found in a shocking unexpected timeframe approximately 10 days ago. PAST HISTORY: CHILDHOOD: Unremarkable. ALLERGIES/INTOLERANCE: BIAXIN (FEET AND LEG SWELLING) BONIVA 150 MG (MOUTH SORES), CECLOR (RASPY VOICE), CHANTIX (HEADACHES, NIGHTMARES AND CONSTIPATION), DAYPRO (GI UPSET), DURICEF (THIS IS VERY QUESTIONABLE BUT IT WAS MAYBE A RASH), KLONOPIN (HEADACHE AND DIZZINESS) MRI ("I AM CLAUSTROPHOBIC"), LATEX (ITCHING), DILAUDID (ANXIETY) CURRENT MEDICATIONS: (FROM [facility]) 1. Budesonide 0.5 mg/2 mL nebulizer Take 2 mLs by nebulizer two times daily 2. Docusate 100 mg p.o. two times daily 3. Ferrous Sulfate 325 mg one tablet by mouth two times daily with meals 4. Folic Acid 1 mg one p.o. daily 5. Hydrocodone/Acetaminophen 7.5-325 mg per tablet one p.o. every 6 hours as needed for pain 6. Ipratropium 0.5-2.5 inhale 3 mLs into the lungs every four hours while awake 7. Potassium Chloride 20 mEq ER one p.o. two times daily 8. Rivaroxaban 10 mg one p.o. daily 9. Alprazolam 1 mg p.o. four times daily 10. Aspirin 81 mg p.o. daily 11. Buproprion 300 mg ER p.o. each morning 12. Buproprion 180 mg ER p.o. each morning 13. Calcium-Vitamin D 600-400 mg p.o. 14. Felodipine 10 mg ER p.o. daily 15. Fluoxetine 20 mg p.o. daily 16. Furosemide 20 mg p.o. daily 17. Omeprazole 20 mg p.o. daily 18. Therapeutic multivitamin - minerals one p.o. daily HOSPITALIZATIONS/SURGERIES/PROCEDURES: She is 2, para 2, AB 0. Her first colonoscopy was with polyps, Dr. Frankel, [place], 01/03/09 and her second one showed diverticular disease, hemorrhoidal disease, mass effect, Dr. Frankel 04/16/2011 with repeat in 5 years. She had EGD with Mukherjee's and dil[place] [facility] [facility] [facility] on 08/[facility]/10, and a repeat with Mukherjee's and hiatal hernia at [place], Dr. Frankel on 04/16/11, to repeat in 3 years (not done). She had a bronchoscopy, [facility], Dr. Carlson, 01/07/13 that was benign. She had a T & A as a child. She had C-spine surgery, Dr. Carpio, [facility], 1999; left shoulder surgery, Dr. Willoughby at [facility] 05/20/06. She has a [facility] admission 01/13/2011, for right lower extremity cellulitis. [facility] admissions of 09/30/12-12/03/12 for left upper lobe infiltrate and 01/07/16-, Dr. Carlson for pneumonia. HABITS: She started smoking at age 18 and still smokes a pack per day. She has had secondhand smoke most of her life. She does not use alcohol. SOCIAL HISTORY: She in 1976 to her current , only once. She had a daughter; has a son. Again, the daughter was jsut recently found . There are grandchildren involved who the patient and her have been taking care of quite a bit since the daughter several years ago. They may end up taking custody of one or more of the children. She use to work at the [employer] office but had a workman's comp injury in 02/2006, I do not think she has worked since then. FAMILY HISTORY: Heart disease in father, hypertension in father. Psychiatric disease in maternal grandmother and mother. No other family tendencies. REVIEW OF SYSTEMS: GENERAL: No fever. INTEGUMENT: No rash or wounds. HEENT: Chronic nasal congestion. No sore throat. NECK: No pain or mass. CHEST: Usual cough. CARDIOVASCULAR: Denies palpitations, exertional chest pain, ankle edema but she is extremely sedentary. GI: Chronic intermittent heartburn. Tends to be constipated. No dysphagia. : Denies dysuria or hematuria. MUSCULOSKELETAL/NEUROLOGIC: She has chronic pain in the back, neck, shoulders on and off, sees pain management. PSYCHIATRIC: Chronic anxiety, depression, concurrent insomnia. PHYSICAL EXAMINATION: VITALS: Temperature 98.0, pulse 84, BP 136/64, 02 sat 91%/NC/02 at 4L GENERAL: No obvious distress. No change from general appearance and baseline. HEENT: Pupils equal, round, extraocular movements intact. NECK: No visible lymphadenopathy, thyromegaly, mass seen or felt and supple. CHEST: Clear but markedly barreled and diminished. No crackles or wheezes. CARDIOVASCULAR: S1, S2 without murmur or peripheral edema. GI: Soft. Nontender. No rebound, guarding, mass or tenderness. MUSCULOSKELETAL/NEUROLOGIC: She can move four quadrants. No paralysis noted. Tender over right hip. ASSESSMENT/PROBLEM LIST: A 60-year-old white female: 1. Allergies and intolerances - see above. 2. Procedural history - see above. 3. Family history - see above. 4. Colon polyps on colonoscopy. 5. 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 6. Hiatal hernia by upper GI endoscopy. 7. Previous esophageal dilatations. 8. Recurring shoulder pain, primarily left. 9. Tobacco/nicotine abuse/addiction. 10. Elevated liver functions, following. 11. Abnormal chest x-rays - but benign to this point. 12. History of iron deficiency anemia. 13. Chronic anxiety. 14. Chronic depression. 15. COPD. 16. Spinal disk disease. 17. Spinal spondylosis. 18. Diastolic dysfunction on echo. 19. Degenerative joint disease that is diffuse. 20. Chronic lower extremity edema- on and off. 21. History of elevated fasting glucose. 22. Chronic hoarseness. 23. Hypertension. 24. History of hyponatremia. 25. Macrocytosis with normal B12 and folate. . 26. Osteoporosis by bone density with refusal for treatment. 27. Chronic back pain. 28. Chronic neck pain. 29. Chronic rhinitis. 30. Weight loss/nutritional risk. 31. Gait decline - chronic degenerative issues. 32. Thrombocytosis - benign to this date. REASON FOR ADMISSION: # Postop right hip pinning for fracture # Gait decline - acute on chronic issues # COPD with recent potential aspiration # Pneumonia - with the above # Delirium/encephalopathy/confusion on and off related to medical diagnoses # Insomnia PLAN: 1. Continue to work with medications to maintain stability of her cardiopulmonary and neurologic situation; for the insomnia we really may have to use some additional medicines to see if she can tolerate. 2. Working with PT/OT to try and increase her abilities, ambulation in particular for eventual discharge to home 3. Working with other support services tech such as nutrition, diet, nursing to her improve her malnutrition and others. 4. Labs/X-rays 5. Wound care/wound vac MTDD
[2016-05-23] MEDS: XANAX PO SCH ×3 (11:32→23:37)
[2016-05-23] MEDS: XARELTO PO SCH (17:42)
[2016-05-24] MEDS: DUONEB NEB SCH ×6 (01:56→21:10)
[2016-05-24] MEDS: PULMICORT 0.5 MG/2 ML NEB SCH ×2 (05:08→17:00)
[2016-05-24] MEDS: PRILOSEC PO SCH (05:37)
[2016-05-24] MEDS: LASIX TAB PO SCH (05:37)
[2016-05-24] MEDS: XANAX PO SCH ×4 (05:38→23:18)
[2016-05-24] MEDS: MULTIVITAMIN PO SCH (08:54)
[2016-05-24] MEDS: NON-FORMULARY MEDICATION (Bupropion Hcl [Wellbutrin Xl] 300 MG) PO SCH (08:54)
[2016-05-24] MEDS: NON-FORMULARY MEDICATION (Bupropion Hcl [Wellbutrin Xl] 150 MG) PO SCH (08:54)
[2016-05-24] MEDS: FOLIC ACID PO SCH (08:55)
[2016-05-24] MEDS: FERROUS SULFATE PO SCH ×2 (08:55→21:32)
[2016-05-24] MEDS: COLACE PO SCH ×2 (08:55→21:32)
[2016-05-24] MEDS: K-DUR PO SCH ×2 (08:55→21:32)
[2016-05-24] MEDS: CALCIUM 500 + VIT D 200 MG TABLET PO SCH (08:55)
[2016-05-24] MEDS: ASPIRIN EC PO SCH (08:55)
[2016-05-24] MEDS: PLENDIL PO SCH (08:56)
[2016-05-24] MEDS: PROZAC PO SCH (08:56)
[2016-05-24] MEDS: NORCO 7.5-325 PO PRN ×2 (09:02→21:32)
--- NOTE | 2016-05-24 13:13 | PN ---
DATE OF VISIT: 05/23/16 - SWING BED SUBJECTIVE: Tricia became ill at home with increased cough and others; she has COPD of a severe nature. She worsened and fell; she came here and was transferred to [facility] with a right hip fracture. Her surgery therefore was complicated by perioperative respiratory failure, pneumonia and this went into metabolic encephalopathy/derlium so it took several days to medically stabilize to the point where it was felt that she could come here to the swing bed program. Her course here has been supportive nursing, dietary and therapy care and she is slowly improving in her gait, ambulation and strength with less cough, less shortness of breath but continues to require oxygen and multiple layers of assistance. OBJECTIVE: V/S: Temperature 97.3, pulse 94, respiratory rate 21, BP 111/79. GENERAL: No obvious distress. CHEST: Markedly diminished but no wheeze, crackles; no dullness to percussion; barreled. CARDIOVASCULAR: S2, S2 without murmur or peripheral edema. GI: Soft, nontender. MUSCULOSKELETAL: She has a 5 cm fullness of incision that is minimally fluctuant but no redness, erythema or induration. LABS/X-RAYS: 05/22 showed a white count of 14 down from 16; hemoglobin 12 up from 11. Chemistries showed sodium 130 down from 134. ASSESSMENT: # Postop right hip repair (from fracture) # Gait decline - acute on chronic issues # COPD with COPD exacerbation and pneumonia - improved # Pneumonia - improved # Malnutrition with protein caloric components - replacing # Postop delirium/encephalopathy/confusion - slowly improving # Right hip drainage - seroma versus hematoma - improving # Postop anemia - improving PLAN: 1. Medicines were reviewed and we will be continuing the same. 2. Labs reviewed again; may wait a week before we repeat. 3. Continue therapy; she needs to be stronger and walking better before discharge can be accomplished. 4. Discharge planning at this point is for home; but it could involve other garay if the clinical course takes that direction. AFSHAN
[2016-05-24] MEDS: XARELTO PO SCH (17:42)
[2016-05-25] MEDS: DUONEB NEB SCH ×6 (01:53→21:35)
[2016-05-25] MEDS: PULMICORT 0.5 MG/2 ML NEB SCH ×2 (05:25→17:16)
[2016-05-25] MEDS: PRILOSEC PO SCH (06:24)
[2016-05-25] MEDS: LASIX TAB PO SCH (06:24)
[2016-05-25] MEDS: XANAX PO SCH ×4 (06:28→23:24)
[2016-05-25] MEDS: K-DUR PO SCH ×2 (08:00→20:33)
[2016-05-25] MEDS: CALCIUM 500 + VIT D 200 MG TABLET PO SCH (08:00)
[2016-05-25] MEDS: NON-FORMULARY MEDICATION (Bupropion Hcl [Wellbutrin Xl] 150 MG) PO SCH (08:00)
[2016-05-25] MEDS: PLENDIL PO SCH (08:00)
[2016-05-25] MEDS: NON-FORMULARY MEDICATION (Bupropion Hcl [Wellbutrin Xl] 300 MG) PO SCH (08:00)
[2016-05-25] MEDS: FOLIC ACID PO SCH (08:00)
[2016-05-25] MEDS: FERROUS SULFATE PO SCH ×2 (08:00→20:34)
[2016-05-25] MEDS: ASPIRIN EC PO SCH (08:01)
[2016-05-25] MEDS: MULTIVITAMIN PO SCH (08:01)
[2016-05-25] MEDS: COLACE PO SCH ×2 (08:01→20:34)
[2016-05-25] MEDS: NORCO 7.5-325 PO PRN ×2 (08:01→15:19)
[2016-05-25] MEDS: PROZAC PO SCH (08:01)
[2016-05-25] MEDS: XARELTO PO SCH (16:16)
[2016-05-26] MEDS: DUONEB NEB SCH ×6 (02:56→21:13)
[2016-05-26] MEDS: PULMICORT 0.5 MG/2 ML NEB SCH ×2 (04:43→17:58)
[2016-05-26] MEDS: NORCO 7.5-325 PO PRN ×3 (05:00→21:57)
[2016-05-26] MEDS: XANAX PO SCH ×3 (06:49→17:05)
[2016-05-26] MEDS: PRILOSEC PO SCH (06:49)
[2016-05-26] MEDS: LASIX TAB PO SCH (06:49)
[2016-05-26] MEDS: COLACE PO SCH ×2 (08:36→20:14)
[2016-05-26] MEDS: NON-FORMULARY MEDICATION (Bupropion Hcl [Wellbutrin Xl] 150 MG) PO SCH (08:36)
[2016-05-26] MEDS: PLENDIL PO SCH (08:36)
[2016-05-26] MEDS: PROZAC PO SCH (08:36)
[2016-05-26] MEDS: CALCIUM 500 + VIT D 200 MG TABLET PO SCH (08:36)
[2016-05-26] MEDS: NON-FORMULARY MEDICATION (Bupropion Hcl [Wellbutrin Xl] 300 MG) PO SCH (08:36)
[2016-05-26] MEDS: MULTIVITAMIN PO SCH (08:37)
[2016-05-26] MEDS: FERROUS SULFATE PO SCH ×2 (08:37→20:14)
[2016-05-26] MEDS: FOLIC ACID PO SCH (08:37)
[2016-05-26] MEDS: ASPIRIN EC PO SCH (08:37)
[2016-05-26] MEDS: K-DUR PO SCH ×2 (08:37→20:14)
[2016-05-26] MEDS: XARELTO PO SCH (16:51)
[2016-05-27] MEDS: XANAX PO SCH ×4 (00:31→17:05)
[2016-05-27] MEDS: DUONEB NEB SCH ×6 (01:18→22:32)
[2016-05-27] MEDS: PULMICORT 0.5 MG/2 ML NEB SCH ×2 (05:04→17:00)
[2016-05-27] MEDS: LASIX TAB PO SCH (05:49)
[2016-05-27] MEDS: PRILOSEC PO SCH (05:49)
[2016-05-27] MEDS: NORCO 7.5-325 PO PRN ×2 (08:00→17:52)
[2016-05-27] MEDS: NON-FORMULARY MEDICATION (Bupropion Hcl [Wellbutrin Xl] 150 MG) PO SCH (08:01)
[2016-05-27] MEDS: FERROUS SULFATE PO SCH ×2 (08:01→21:21)
[2016-05-27] MEDS: NON-FORMULARY MEDICATION (Bupropion Hcl [Wellbutrin Xl] 300 MG) PO SCH (08:01)
[2016-05-27] MEDS: FOLIC ACID PO SCH (08:01)
[2016-05-27] MEDS: ASPIRIN EC PO SCH (08:01)
[2016-05-27] MEDS: MULTIVITAMIN PO SCH (08:01)
[2016-05-27] MEDS: CALCIUM 500 + VIT D 200 MG TABLET PO SCH (08:01)
[2016-05-27] MEDS: PROZAC PO SCH (08:02)
[2016-05-27] MEDS: PLENDIL PO SCH (08:02)
[2016-05-27] MEDS: K-DUR PO SCH ×2 (08:02→21:20)
[2016-05-27] MEDS: COLACE PO SCH ×2 (08:02→21:21)
--- NOTE | 2016-05-27 09:53 | PN ---
DATE OF VISIT: 05/26/16 SUBJECTIVE: Tricia became ill at home with an acute respiratory infection; this is on top of significant emphysema. She fell fracturing her right hip; presented first to [facility] with transfer to [facility] where she had her surgery. She presented with pneumonia. Postoperatively she continued to have respiratory failure both hypoxic and hypercarbic. Her gait was unattenable and she developed delirium/ metabolic encephalopathy and was sick for several days in ICU. She made it to the floor but was no way ready to go home and she was transferred here for convalesence. Slowly she is eating more, getting more strength, walking some with oxygen as much as 4L to keep her o2 sat above 90. She is resting better. She has less confusion or forgetfulness. OBJECTIVE: V/S: Temperature 98.1, pulse 98, BP 104/66, respirations 20. GENERAL: Pleasant, no obvious distress. INTEGUMENT: She has fullness over the right hip approximately 6 to 7 cm. A little drainage on the incision that is dry. No induration or erythema. CHEST: Markedly diminished barreled but clear. CARDIOVASCULAR: Regular, S1, S2 with trace ankle edema. GI: Protuberant due to kyphosis, soft. MUSCULOSKELETAL/NEUROLOGIC: Oriented times three. Purposeful conversation. Short and long-term memory seems to lag. LABS/X-RAYS: Last labs were the 8th, white count 14, hemoglobin 12. Chemistries: Sodium 130 vs 134. ASSESSMENT: # Postop right hip repair (from fracture) # Gait decline - acute on chronic issues # COPD with COPD exacerbation and pneumonia - improved # Pneumonia - improved # Malnutrition with protein caloric components - replacing # Postop delirium/encephalopathy/confusion - slowly improving # Right hip drainage - seroma versus hematoma - improving # Postop anemia - improving PLAN: 1. Medicines reviewed - same. 2. Labs reviewed - maybe later this week. 3. Needs continued therapy, PT/OT. 4. Needs continued nursing care; she is unable to care for herself at home and her is going back to work this week. 5. Discharge planning; hopefully home but she actually may end up needing shortterm detention placement. [facility]
[2016-05-27] MEDS: XARELTO PO SCH (17:05)
[2016-05-28] MEDS: NORCO 7.5-325 PO PRN ×4 (00:37→17:18)
[2016-05-28] MEDS: XANAX PO SCH ×5 (00:37→23:14)
[2016-05-28] MEDS: DUONEB NEB SCH ×5 (02:10→21:25)
[2016-05-28] MEDS: PULMICORT 0.5 MG/2 ML NEB SCH ×2 (05:20→21:24)
[2016-05-28] MEDS: PRILOSEC PO SCH (05:51)
[2016-05-28] MEDS: LASIX TAB PO SCH (05:51)
[2016-05-28] MEDS: MULTIVITAMIN PO SCH (08:43)
[2016-05-28] MEDS: NON-FORMULARY MEDICATION (Bupropion Hcl [Wellbutrin Xl] 150 MG) PO SCH (08:43)
[2016-05-28] MEDS: K-DUR PO SCH ×2 (08:43→21:22)
[2016-05-28] MEDS: ASPIRIN EC PO SCH (08:43)
[2016-05-28] MEDS: COLACE PO SCH ×2 (08:43→21:22)
[2016-05-28] MEDS: NON-FORMULARY MEDICATION (Bupropion Hcl [Wellbutrin Xl] 300 MG) PO SCH (08:43)
[2016-05-28] MEDS: CALCIUM 500 + VIT D 200 MG TABLET PO SCH (08:43)
[2016-05-28] MEDS: FOLIC ACID PO SCH (08:43)
[2016-05-28] MEDS: FERROUS SULFATE PO SCH ×2 (08:43→21:21)
[2016-05-28] MEDS: PLENDIL PO SCH (08:44)
[2016-05-28] MEDS: PROZAC PO SCH (08:44)
[2016-05-28] MEDS: XARELTO PO SCH (17:18)
[2016-05-29] MEDS: PULMICORT 0.5 MG/2 ML NEB SCH ×2 (05:03→21:15)
[2016-05-29] MEDS: DUONEB NEB SCH ×5 (05:04→21:15)
[2016-05-29] MEDS: LASIX TAB PO SCH (05:39)
[2016-05-29] MEDS: PRILOSEC PO SCH (05:39)
[2016-05-29] MEDS: XANAX PO SCH ×3 (05:39→18:15)
[2016-05-29] MEDS: NORCO 7.5-325 PO PRN ×3 (05:57→18:15)
--- NOTE | 2016-05-29 07:20 | PN ---
DATE OF VISIT: 05/28/16 CHIEF COMPLAINT: "I was sick." HISTORY OF PRESENT ILLNESS: Developing acute respiratory infection at home she became weak and fell. She broke her right hip. She presented to the [facility] and was transferred to [facility] where she had to have hip surgery. She therefore presented with pneumonia and it was perioperatively treated. She had associated respiratory failure (hypoxia and to a lessor extent hypercarbia). She required a great deal of care postoperatively. She developed delirium and metabolic encephalopathy and even at times was agitated. This significantly slowed her recovery. She gradually improved these situations to a dischargeable level but she wasn't ambulating nor was stable enough to consider home so she came here for swing bed services. She received therapy, dietary and nursing support; she is eating better and has regained some strength and is breathing better though she still requires a significant oxygen replacement more so with activity. She is walking better. Her eloy are out. OBJECTIVE: V/S: Temperature 97.6, pulse 98, respirations 18, BP 120/79; all of these patterns are stable. No recent labs since 05/22. GENERAL: Pleasant, purposeful conversation, no obvious distress. Somewhat cachexic and older than stated age. INTEGUMENT: Has the area over her incision that is protuberant, soft but not particularly fluctuant and not sore or indurated. The incision is intact with dry dressing. NECK: No mass. CHEST: Diminished but clear and moderately barreled in size. CARDIOVASCULAR: Regular without murmur. GI: No tenderness and soft. NEUROLOGIC: Oriented times three. Pleasant, purposeful conversation. ASSESSMENT: # Postop right hip from fracture # Gait decline - acute on chronic and improving # COPD with exacerbation and pneumonia - improving # Pneumonia - improving # Malnutrition with protein, caloric and weight loss components - replacing # Postop delirium encephalopathy and confusion - resolved # Right hip incision drainage, seroma vs hematoma - improving # Postop anemia PLAN: 1. Chest x-ray 2. Continue therapy 3. Medicines reviewed and same 4. Labs before discharge 5. Discharge planning remains for home; if that level of ability can be achieved MTDD
[2016-05-29] MEDS: ASPIRIN EC PO SCH (08:15)
[2016-05-29] MEDS: MULTIVITAMIN PO SCH (09:18)
[2016-05-29] MEDS: NON-FORMULARY MEDICATION (Bupropion Hcl [Wellbutrin Xl] 300 MG) PO SCH (09:18)
[2016-05-29] MEDS: NON-FORMULARY MEDICATION (Bupropion Hcl [Wellbutrin Xl] 150 MG) PO SCH (09:18)
[2016-05-29] MEDS: FERROUS SULFATE PO SCH ×2 (09:19→21:52)
[2016-05-29] MEDS: FOLIC ACID PO SCH (09:19)
[2016-05-29] MEDS: K-DUR PO SCH ×2 (09:19→21:52)
[2016-05-29] MEDS: COLACE PO SCH ×2 (09:19→21:51)
[2016-05-29] MEDS: PROZAC PO SCH (09:19)
[2016-05-29] MEDS: PLENDIL PO SCH (09:19)
[2016-05-29] MEDS: CALCIUM 500 + VIT D 200 MG TABLET PO SCH (09:19)
--- NOTE | 2016-05-29 14:22 | DI ---
EXAM: CHEST FRONTAL AND LATERAL VIEWS HISTORY: Chronic obstructive pulmonary disease, shortness of breath. COMPARISON: 11/30/2012 FINDINGS: Heart size remains within normal limits. Lungs are hyperinflated. There is diffuse luce ncy suggesting relatively severe emphysema. Mild increase density over the right lower lung and to a greater extent the left upper lung with the latter region containing a central 0.87 cm indetermina te nodular opacity. The left-sided findings are new for the most part, especially at the apical lev el. No vascular congestion, pneumothorax or pleural fluid. The bones appear demineralized. Modera te degenerative changes of the spine with early loss of vertebral body height. Stabilization hardwa re lower cervical spine. IMPRESSION: 1. Findings suggestive of severe chronic obstructive pulmonary disease and fibrosis. 2. Cannot exclude superimposed pneumonia especially in the left upper lung. Underlying malignant o r benign pulmonary nodules at least in the left upper lobe may be present versus foci of scarring. Further imaging could include follow-up chest radiography or CT thorax.
[2016-05-29] MEDS: XARELTO PO SCH (17:34)
[2016-05-30] MEDS: XANAX PO SCH ×4 (00:02→17:29)
[2016-05-30] MEDS: NORCO 7.5-325 PO PRN ×3 (04:10→18:02)
[2016-05-30] MEDS: PULMICORT 0.5 MG/2 ML NEB SCH ×2 (04:58→22:18)
[2016-05-30] MEDS: DUONEB NEB SCH ×4 (04:58→22:18)
[2016-05-30] MEDS: LASIX TAB PO SCH (06:15)
[2016-05-30] MEDS: PRILOSEC PO SCH (06:15)
[2016-05-30] MEDS: ASPIRIN EC PO SCH (09:03)
[2016-05-30] MEDS: NON-FORMULARY MEDICATION (Bupropion Hcl [Wellbutrin Xl] 150 MG) PO SCH (09:04)
[2016-05-30] MEDS: NON-FORMULARY MEDICATION (Bupropion Hcl [Wellbutrin Xl] 300 MG) PO SCH (09:04)
[2016-05-30] MEDS: COLACE PO SCH ×2 (09:05→21:46)
[2016-05-30] MEDS: CALCIUM 500 + VIT D 200 MG TABLET PO SCH (09:05)
[2016-05-30] MEDS: FERROUS SULFATE PO SCH ×2 (09:06→21:46)
[2016-05-30] MEDS: K-DUR PO SCH ×2 (09:06→21:47)
[2016-05-30] MEDS: FOLIC ACID PO SCH (09:06)
[2016-05-30] MEDS: PLENDIL PO SCH (09:07)
[2016-05-30] MEDS: MULTIVITAMIN PO SCH (09:07)
[2016-05-30] MEDS: PROZAC PO SCH (09:08)
[2016-05-30] MEDS: XARELTO PO SCH (17:28)
[2016-05-30] MEDS ORDERED: NORCO 7.5-325 PO STA (21:10)
[2016-05-31] MEDS: XANAX PO SCH ×5 (02:45→23:56)
[2016-05-31] MEDS: PULMICORT 0.5 MG/2 ML NEB SCH ×2 (04:53→20:13)
[2016-05-31] MEDS: DUONEB NEB SCH ×4 (04:53→20:14)
[2016-05-31] MEDS: NORCO 7.5-325 PO PRN ×3 (05:21→18:00)
[2016-05-31] MEDS: PRILOSEC PO SCH (05:39)
[2016-05-31] MEDS: LASIX TAB PO SCH (05:39)
[2016-05-31] MEDS: ASPIRIN EC PO SCH (08:55)
[2016-05-31] MEDS: CALCIUM 500 + VIT D 200 MG TABLET PO SCH (09:28)
[2016-05-31] MEDS: NON-FORMULARY MEDICATION (Bupropion Hcl [Wellbutrin Xl] 150 MG) PO SCH (09:28)
[2016-05-31] MEDS: COLACE PO SCH ×2 (09:28→20:09)
[2016-05-31] MEDS: NON-FORMULARY MEDICATION (Bupropion Hcl [Wellbutrin Xl] 300 MG) PO SCH (09:28)
[2016-05-31] MEDS: FERROUS SULFATE PO SCH ×2 (09:29→20:08)
[2016-05-31] MEDS: PLENDIL PO SCH (09:29)
[2016-05-31] MEDS: K-DUR PO SCH ×2 (09:29→20:09)
[2016-05-31] MEDS: PROZAC PO SCH (09:29)
[2016-05-31] MEDS: MULTIVITAMIN PO SCH (09:29)
[2016-05-31] MEDS: FOLIC ACID PO SCH (09:29)
--- NOTE | 2016-05-31 10:20 | PN ---
DATE OF VISIT: 05/31/16 CHIEF COMPLAINT: "I am getting better." SUBJECTIVE: Developing acute respiratory infection at home she became weak and fell. She broke her right hip. She presented to the [place] ER and was transferred to [facility] where she had to have hip surgery. She therefore presented with pneumonia and it was perioperatively treated. She had associated respiratory failure (hypoxia and to a lessor extent hypercarbia). She required a great deal of care postoperatively. She developed delirium and metabolic encephalopathy and even at times was agitated. This significantly slowed her recovery. She gradually improved these situations to a dischargeable level but she wasn't ambulating nor was stable enough to consider home so she came here for swing bed services. She received therapy, dietary and nursing support; she is eating better and has regained some strength and is breathing better though she still requires a significant oxygen replacement more so with activity. She is walking better. Her eloy are out. INTERVAL CHANGE - She is less fatigued with improved ambulation. She is less confused with better cognition. She is walking further and better. She has less cough and shortness of breath though she still requires oxygen supplementation. She has been given five more days of therapy and stay. OBJECTIVE: V/S: Temperature 98.7, pulse 98, respirations 18, BP 129/92. GENERAL: Older than stated age but pleasant, well-kept. INTEGUMENT: She still has the intact right hip incision with a fullness of about 5 cm and mild fluctuance with no tenderness or induration. No ankle edema. Eyegrounds are pale. HEENT: Facial symmetry. NECK: No visible mass or thyroid. CHEST: Markedly barreled but clear. CARDIOVASCULAR: S1, S2 without murmur. NEUROLOGIC: She has a stronger speech; is more purposeful in her conversation, more direct and organized in her throught processing. LABS/X-RAYS: No labs since 05/22. ASSESSMENT: # Postop right hip from fracture # Gait decline - acute on chronic and improving # COPD with exacerbation and pneumonia - improving # Pneumonia - improving # Malnutrition with protein, caloric and weight loss components - replacing # Postop delirium encephalopathy and confusion - resolved # Right hip incision drainage, seroma vs hematoma - improving # Postop anemia Generally improving. PLAN: At least another five days of skilled care nursing; aggressive nutrition; OT/PT and respiratory support. MTDD
[2016-05-31] MEDS: XARELTO PO SCH (17:59)
[2016-06-01] MEDS: PULMICORT 0.5 MG/2 ML NEB SCH ×2 (05:20→19:08)
[2016-06-01] MEDS: DUONEB NEB SCH ×4 (05:20→19:09)
[2016-06-01] MEDS: LASIX TAB PO SCH (05:52)
[2016-06-01] MEDS: PRILOSEC PO SCH (05:52)
[2016-06-01] MEDS: XANAX PO SCH ×4 (05:52→23:47)
[2016-06-01] MEDS: NORCO 7.5-325 PO PRN ×4 (05:53→23:47)
[2016-06-01] MEDS: CALCIUM 500 + VIT D 200 MG TABLET PO SCH (08:45)
[2016-06-01] MEDS: ASPIRIN EC PO SCH (08:46)
[2016-06-01] MEDS: FOLIC ACID PO SCH (08:46)
[2016-06-01] MEDS: PROZAC PO SCH (08:46)
[2016-06-01] MEDS: PLENDIL PO SCH (08:46)
[2016-06-01] MEDS: K-DUR PO SCH ×2 (08:46→20:01)
[2016-06-01] MEDS: FERROUS SULFATE PO SCH ×2 (08:46→20:01)
[2016-06-01] MEDS: NON-FORMULARY MEDICATION (Bupropion Hcl [Wellbutrin Xl] 150 MG) PO SCH (08:47)
[2016-06-01] MEDS: NON-FORMULARY MEDICATION (Bupropion Hcl [Wellbutrin Xl] 300 MG) PO SCH (08:47)
[2016-06-01] MEDS: MULTIVITAMIN PO SCH (08:47)
[2016-06-01] MEDS: COLACE PO SCH ×2 (08:47→20:01)
[2016-06-01] MEDS: XARELTO PO SCH (16:40)
[2016-06-02] MEDS: PULMICORT 0.5 MG/2 ML NEB SCH ×2 (05:19→19:23)
[2016-06-02] MEDS: DUONEB NEB SCH ×4 (05:20→19:23)
[2016-06-02] MEDS: NORCO 7.5-325 PO PRN ×3 (05:26→17:58)
[2016-06-02] MEDS: XANAX PO SCH ×3 (05:26→17:31)
[2016-06-02] MEDS: LASIX TAB PO SCH (05:35)
[2016-06-02] MEDS: PRILOSEC PO SCH (05:36)
[2016-06-02] MEDS: NON-FORMULARY MEDICATION (Bupropion Hcl [Wellbutrin Xl] 150 MG) PO SCH (08:34)
[2016-06-02] MEDS: NON-FORMULARY MEDICATION (Bupropion Hcl [Wellbutrin Xl] 300 MG) PO SCH (08:34)
[2016-06-02] MEDS: CALCIUM 500 + VIT D 200 MG TABLET PO SCH (08:34)
[2016-06-02] MEDS: FERROUS SULFATE PO SCH ×2 (08:34→20:11)
[2016-06-02] MEDS: ASPIRIN EC PO SCH (08:34)
[2016-06-02] MEDS: COLACE PO SCH ×2 (08:34→20:11)
[2016-06-02] MEDS: PROZAC PO SCH (08:34)
[2016-06-02] MEDS: MULTIVITAMIN PO SCH (08:35)
[2016-06-02] MEDS: PLENDIL PO SCH (08:35)
[2016-06-02] MEDS: K-DUR PO SCH ×2 (08:35→20:11)
[2016-06-02] MEDS: FOLIC ACID PO SCH (08:35)
[2016-06-02] MEDS: XARELTO PO SCH (17:31)
[2016-06-02 17:38] VITALS: TEMP 98.4
[2016-06-03] MEDS: NORCO 7.5-325 PO PRN ×3 (00:21→12:06)
[2016-06-03] MEDS: XANAX PO SCH ×3 (00:21→12:06)
[2016-06-03] MEDS: PULMICORT 0.5 MG/2 ML NEB SCH (05:29)
[2016-06-03] MEDS: DUONEB NEB SCH ×3 (05:30→14:00)
[2016-06-03] MEDS: PRILOSEC PO SCH (06:06)
[2016-06-03] MEDS: LASIX TAB PO SCH (06:06)
[2016-06-03 06:07] VITALS: BP 151/89
[2016-06-03] MEDS: MULTIVITAMIN PO SCH (08:12)
[2016-06-03] MEDS: NON-FORMULARY MEDICATION (Bupropion Hcl [Wellbutrin Xl] 300 MG) PO SCH (08:12)
[2016-06-03] MEDS: NON-FORMULARY MEDICATION (Bupropion Hcl [Wellbutrin Xl] 150 MG) PO SCH (08:12)
[2016-06-03] MEDS: ASPIRIN EC PO SCH (08:12)
[2016-06-03] MEDS: K-DUR PO SCH (08:12)
[2016-06-03] MEDS: PLENDIL PO SCH (08:13)
[2016-06-03] MEDS: FOLIC ACID PO SCH (08:13)
[2016-06-03] MEDS: CALCIUM 500 + VIT D 200 MG TABLET PO SCH (08:13)
[2016-06-03] MEDS: FERROUS SULFATE PO SCH (08:13)
[2016-06-03] MEDS: COLACE PO SCH (08:13)
[2016-06-03] MEDS: PROZAC PO SCH (08:13)
--- NOTE | 2016-06-03 13:30 | PN ---
INTERVAL NOTE TO: WHOM IT MAY CONCERN RE: ANASTASIA SCHULER, 1955 DATE OF SERVICE: 06/03/16 Ms. Schuler is being discharged from [facility] today. This follows a fall at home with a fractured hip; a long stay at [facility] and fortunately ability to be transferred to the swing bed program at [place]. She has now completed rehabilitation and care to the point where discharge home is an option. Her diagnosis through this stay includes: # Postop right hip from fracture # Gait decline - acute on chronic and improving # COPD with exacerbation and pneumonia - improving # Pneumonia - improving # Malnutrition with protein, caloric and weight loss components - replacing # Postop delirium encephalopathy and confusion - resolved # Right hip incision drainage, seroma vs hematoma - improving # Postop anemia For discharge purposes she needs referrals to [facility] for nursing, PT/OT. She will need durable medical equipment that includes a rolling walker. Her chronic respiratory failure requires her to have continuous oxygen at 2.5L at rest and 3 to 4L for exertion. She needs nebulizer machine and equipment to allow for her to continue nebulized bronchodilator at home. Be aware she was seen earlier today in a "face to face" encounter where all of this was discussed and conclusions for this was arranged. SINCERELY, NÉSTOR GOODWIN M.D. ALE/jillian 06/03/16 [facility]
[2016-06-03] MEDS: XARELTO PO SCH (16:40)
--- NOTE | 2016-06-04 10:11 | DS ---
DATE OF DISCHARGE SUMMARY: 06/03/16 PATIENT PROFILE: The patient is a 60-year-old female resident of [place], [place]. She was cooperative. CHIEF COMPLAINT: "I broke my hip." BRIEF HISTORY OF PRESENT ILLNESS: The patient fell slipping at home and had pain in her hip. She went to [facility] where she was found to have a nondisplaced fracture. She has known osteoporosis and has been advised through declined intervention. She was felt to be stable enough for transfer; she was sent to ICU at [facility] to eventually deal with the hip fracture. Other problems discovered were an infiltrate on her chest x-ray; left lower lobe. On 03/29/2016 she called the office with concern of cough and wanted a refill of antibiotics, steroids and was given that. She has COPD and a long history of smoking. She also has a history of frequent abnormal chest x-rays even with cavitary appearances and at times concerns for cancer; to this point with Dr. Carlson and finding only benign issues. She says since March, she has had an ongoing cough productive on occasion but did not notice that she was recently having any fever. Additionally , at [place], her potassium was 3.3; her initial care has already corrected that to 3.5. Her urine was 4+ bacteria. She denies dysuria, hematuria; her hemoglobin was 10.6 and with the fluids given at [place] (she was bolused), her hemoglobin is now 8.8. She has a diagnosis of hypertension and her blood pressure at [place] was initially in the 80s. She has chronic depression and this is made extremely worse by her daughter being found in a shocking unexpected timeframe approximately 10 days ago. PAST HISTORY: CHILDHOOD: Unremarkable. ALLERGIES/INTOLERANCE: BIAXIN (FEET AND LEG SWELLING) BONIVA 150 MG (MOUTH SORES), CECLOR (RASPY VOICE), CHANTIX (HEADACHES, NIGHTMARES AND CONSTIPATION), DAYPRO (GI UPSET), DURICEF (THIS IS VERY QUESTIONABLE BUT IT WAS MAYBE A RASH), KLONOPIN (HEADACHE AND DIZZINESS) MRI ("I AM CLAUSTROPHOBIC"), LATEX (ITCHING), DILAUDID (ANXIETY) CURRENT MEDICATIONS: (FROM [facility]) 1. Budesonide 0.5 mg/2 mL nebulizer Take 2 mLs by nebulizer two times daily 2. Docusate 100 mg p.o. two times daily 3. Ferrous Sulfate 325 mg one tablet by mouth two times daily with meals 4. Folic Acid 1 mg one p.o. daily 5. Hydrocodone/Acetaminophen 7.5-325 mg per tablet one p.o. every 6 hours as needed for pain 6. Ipratropium 0.5-2.5 inhale 3 mLs into the lungs every four hours while awake 7. Potassium Chloride 20 mEq ER one p.o. two times daily 8. Rivaroxaban 10 mg one p.o. daily 9. Alprazolam 1 mg p.o. four times daily 10. Aspirin 81 mg p.o. daily 11. Bupropion 300 mg ER p.o. each morning 12. Bupropion 180 mg ER p.o. each morning 13. Calcium-Vitamin D 600-400 mg p.o. 14. Felodipine 10 mg ER p.o. daily 15. Fluoxetine 20 mg p.o. daily 16. Furosemide 20 mg p.o. daily 17. Omeprazole 20 mg p.o. daily 18. Therapeutic multivitamin - minerals one p.o. daily HOSPITALIZATIONS/SURGERIES/PROCEDURES: She is 2, para 2, AB 0. Her first colonoscopy was with polyps, Dr. Frankel, [place], 01/03/09 and her second one showed diverticular disease, hemorrhoidal disease, mass effect, Dr. Frankel 04/16/2011 with repeat in 5 years. She had EGD with Mukherjee's and dilatation with hiatal hernia at [place], Dr. Frankel on 08/21/10, and a repeat with Mukherjee's and hiatal hernia at [place], Dr. Frankel on 04/16/11, to repeat in 3 years (not done). She had a bronchoscopy, [facility], Dr. Carlson, 01/07/13 that was benign. She had a T & A as a child. She had C-spine surgery, Dr. Carpio, [facility], 1999; left shoulder surgery, Dr. Willoughby at [facility] 05/20/06. She has a [facility] admission 01/13/2011, for right lower extremity cellulitis. [facility] admissions of 09/30/12-12/03/12 for left upper lobe infiltrate and 01/07/16-, Dr. Carlson for pneumonia. HABITS: She started smoking at age 18 and still smokes a pack per day. She has had secondhand smoke most of her life. She does not use alcohol. SOCIAL HISTORY: She in 1976 to her current , only once. She had a daughter; has a son. Again, the daughter was jsut recently found . There are grandchildren involved who the patient and her have been taking care of quite a bit since the daughter several years ago. They may end up taking custody of one or more of the children. 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 FAMILY HISTORY: Heart disease in father, hypertension in father. Psychiatric disease in maternal grandmother and mother. No other family tendencies. REVIEW OF SYSTEMS: GENERAL: No fever. INTEGUMENT: No rash or wounds. HEENT: Chronic nasal congestion. No sore throat. NECK: No pain or mass. CHEST: Usual cough. CARDIOVASCULAR: Denies palpitations, exertional chest pain, ankle edema but she is extremely sedentary. GI: Chronic intermittent heartburn. Tends to be constipated. No dysphagia. : Denies dysuria or hematuria. MUSCULOSKELETAL/NEUROLOGIC: She has chronic pain in the back, neck, shoulders on and off, sees pain management. PSYCHIATRIC: Chronic anxiety, depression, concurrent insomnia. PHYSICAL EXAMINATION: VITALS: Temperature 98.0, pulse 84, BP 136/64, 02 sat 91%/NC/02 at 4L GENERAL: No obvious distress. No change from general appearance and baseline. HEENT: Pupils equal, round, extraocular movements intact. NECK: No visible lymphadenopathy, thyromegaly, mass seen or felt and supple. CHEST: Clear but markedly barreled and diminished. No crackles or wheezes. CARDIOVASCULAR: S1, S2 without murmur or peripheral edema. GI: Soft. Nontender. No rebound, guarding, mass or tenderness. MUSCULOSKELETAL/NEUROLOGIC: She can move four quadrants. No paralysis noted. Tender over right hip. ASSESSMENT/PROBLEM LIST: A 60-year-old white female: 1. Allergies and intolerances - see above. 2. Procedural history - see above. 3. Family history - see above. 4. Colon polyps on colonoscopy. 5. 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 6. Hiatal hernia by upper GI endoscopy. 7. Previous esophageal dilatations. 8. Recurring shoulder pain, primarily left. 9. Tobacco/nicotine abuse/addiction. 10. Elevated liver functions, following. 11. Abnormal chest x-rays - but benign to this point. 12. History of iron deficiency anemia. 13. Chronic anxiety. 14. Chronic depression. 15. COPD. 16. Spinal disk disease. 17. Spinal spondylosis. 18. Diastolic dysfunction on echo. 19. Degenerative joint disease that is diffuse. 20. Chronic lower extremity edema- on and off. 21. History of elevated fasting glucose. 22. Chronic hoarseness. 23. Hypertension. 24. History of hyponatremia. 25. Macrocytosis with normal B12 and folate. . 26. Osteoporosis by bone density with refusal for treatment. 27. Chronic back pain. 28. Chronic neck pain. 29. Chronic rhinitis. 30. Weight loss/nutritional risk. 31. Gait decline - chronic degenerative issues. 32. Thrombocytosis - benign to this date. REASON FOR ADMISSION: # Postop right hip pinning for fracture # Gait decline - acute on chronic issues # COPD with recent potential aspiration # Pneumonia - with the above # Delirium/encephalopathy/confusion on and off related to medical diagnoses # Insomnia SWING BED HOSPITAL COURSE: She received half-way care and supervision; dietary review and significant support from that. She received physical therapy through PT/OT. We continued aggressive management to deal with her anemia, her resolving pneumonia , her chronic respiratory failure and with all the above, she gradually improved in her strength, her cognition with less confusion; her general abilities. It took the entire stay that she was here to accomplish this. She did develop hematoma with minimal drainage of the right incision/hip area but this did not warrant any significant complication. Laboratories here on 05/15 showed white count of 16 dropping by 05/22 to 14; hemoglobin 11 and going to 12.3. Initial chemistries showed a total protein of 5.7, albumin 1.8 and note initial GFR 96; repeats on the were all stable. DISCHARGE ASSESSMENT/PROBLEM LIST (CHANGED FROM ADMISSION): # Postop right hip fracture # Gait decline - acute on chronic issues # COPD with exacerbation and pneumonia - resolved # Pneumonia - resolved # Malnutrition with protein caloric and weight loss components - improving # Postop delirium - encephalopathy and confusion - resolved # Right hip incision and drainage - seroma with hematoma improving # Postop anemia # Anxiety - acute on chronic (recently her lost her daughter) MTDD
== END 2016-06-03 17:25 | disposition home or self-care (01) | DRG 559 ==
LOC: MEDSURG B 14:58
PROVIDERS: ADMIT Family Medicine; ATTEND Family Medicine
DX: S72.092D Other fracture of head and neck of left femur, subsequent encounter for closed fracture with routine healing (principal); J18.9 Pneumonia, unspecified organism; J44.1 Chronic obstructive pulmonary disease with (acute) exacerbation; J96.11 Chronic respiratory failure with hypoxia; E46 Unspecified protein-calorie malnutrition; F05 Delirium due to known physiological condition; D62 Acute posthemorrhagic anemia; R26.2 Difficulty in walking, not elsewhere classified; T81.31XA Disruption of external operation (surgical) wound, not elsewhere classified, initial encounter; F41.8 Other specified anxiety disorders; Z63.4 Disappearance and death of family member; F17.210 Nicotine dependence, cigarettes, uncomplicated; W01.0XXD Fall on same level from slipping, tripping and stumbling without subsequent striking against object, subsequent encounter; Z79.899 Other long term (current) drug therapy
CPT/HCPCS: 36415; 80048; 80053; 85025; 87070; 87081; 94640; 94761; 97802

== ENCOUNTER 2017-05-02 12:28 | Outpatient (CLI) | payer OTHER ==
--- NOTE | 2017-05-05 08:42 | MAMMO ---
EXAM: Digital screening mammogram with 3-D tomosynthesis and CAD HISTORY: Screening mammogram. COMPARISON: Mammogram 01/25/2015 and 01/24/2014 FINDINGS: Breast density demonstrates scattered fibroglandular densities. There is no suspicious nod ule or calcification identified. There has been no significant interval change. IMPRESSION: No suspicious mass or calcification. Recommendation: Annual screening mammogram. BIRADS category 1: Normal.
== END 2017-05-02 12:29 | disposition home or self-care (01) ==
LOC: RAD 12:28
PROVIDERS: ATTEND Family Medicine
DX: Z12.31 Encounter for screening mammogram for malignant neoplasm of breast (principal)
CPT/HCPCS: 77067

== ENCOUNTER 2017-12-26 07:00 | Emergency (ER) ==
[2017-12-26] MEDS ORDERED: SODIUM CHLORIDE 1,000 ML IV STA ×2 (07:04)
[2017-12-26 07:06] VITALS: TEMP 98.4; BMI 25.2
--- NOTE | 2017-12-26 07:41 | CT ---
EXAM: CT head without contrast. HISTORY: Suspected cerebrovascular accident. COMPARISON: 05/03/2016. TECHNIQUE: Multiple axial images of the brain were obtained from the skull base through the vertex w ithout intravenous contrast. Multiplanar reformats were provided. FINDINGS: There is irregular low density within both cerebellar hemispheres with associated cerebell ar enlargement and mass effect on the fourth ventricle which is nearly effaced. It is difficult to e xclude slight enlargement of the lateral and third ventricles since the prior study. The ying-white differentiation in the cerebral hemispheres is maintained without evidence for acute large vascular t erritory infarction. There are areas of periventricular and subcortical white matter low attenuation . The cortical sulci are enlarged. The basal cisterns are well visualized. There is no midline velma ft. The paranasal sinuses and mastoid air cells are clear. The calvarium is intact. Old C1 fractur e partially imaged. IMPRESSION: 1. Probable bilateral cerebellar hemisphere infarctions with mass effect and partial effacement of t he fourth ventricle. Mild obstructive hydrocephalus is not excluded. Correlation with MRI recommend ed for further evaluation and to exclude underlying mass. 2. Chronic small vessel ischemic changes and atrophy. Comment: Findings discussed with Dr. Mcfadden at 7:35 a.m. on 12/26/2017.
--- NOTE | 2017-12-26 07:41 | ED.PDOC ---
General ED Provider: Dr. DOMITILA DEAN Chief Complaint: Altered Mental Status Stated Complaint: CVA Time Seen by Physician: 07:00 Mode of Arrival: Ambulance Information Source: EMT, Other (PT'S ) Exam Limitations: Clinical condition Primary Care Provider: NÉSTOR GOODWIN Referred to ED by: Other ( STATED PT WAS UNABLE TO HOLD HER CUP 1 DAY AGO PRESENT THROUGH OUT THIS CONVERSATION MAY HARINI DELGADILLO MD ) Nursing and Triage Documentation Reviewed and Agree: No Does patient meet sepsis criteria?: No If yes, has appropriate treatment been initiated?: No System Inflammatory Response Syndrome: Not Applicable Sepsis Protocol: For patient's 13 years and over: Temp is 96.8 and below OR 101 and greater Pulse >90 BPM Resp >20/minute Acutely Altered Mental Status Are patient's symptoms suggestive of a new infection, such as: -Pneumonia -Skin, Soft Tissue -Endocarditis -UTI -Bone, Joint Infection -Implantable Device -Acute Abdominal Infection -Wound Infection -Meningitis -Blood Stream Catheter Infection -Unknown - Neurological Deficit Complaint/Exam Patient Complains of: Reports: Other (PT UNABLE TO MOVE RIGHT ARM AND RIGHT LEG AT ABOUT 7 AM) Symptom Onset Unknown: Yes (ABOUT 5:17 AM) Symptom Onset Date: 12/26/17 Symptom Onset Time: 05:30 Onset: Gradual Symptoms Are: Still present Timing: Constant Initial Severity: None Current Severity: Severe Location: Reports: RUE, RLE Character: Reports: Paralysis Aggravating: Reports: None Alleviating: Reports: None Associated Signs and Symptoms: Reports: Confusion, Agitation CVA Risk Factors: Reports: None Related Surgical History: Reports: None Carotid Bruit Present: No Meningeal Signs Positive: No Focal Weakness: Present: RUE, RLE Focal Sensory Loss: Present: RUE, RLE Gait: Unable Nystagmus Present: No Romberg Test Positive: No (UNABLE) Babinski Sign: Positive Right, Negative Left Signs of Trauma: No NIH Scale Score (see protocol): 25 IV t-PA Prescribed: No (NEURLOGIST STATED PT IS NOT A CANDIDATE [employer](MALGORZATA Wharton) Reasons for not prescribing IV t-PA: Support (MD STATED NOT TO USE IT ) Differential Diagnoses: CVA Review of Systems - Review Of Systems Constitutional: Reports: Weakness Eyes: Reports: No symptoms Ears, Nose, Mouth, Throat: Reports: No symptoms Respiratory: Reports: No symptoms Cardiac: Reports: No symptoms GI: Reports: No symptoms : Reports: No symptoms Musculoskeletal: Reports: No symptoms Skin: Reports: No symptoms Neurological: Reports: Weakness (RIGHT ARM/LEG) Endocrine: Reports: No symptoms Hematologic/Lymphatic: Reports: No symptoms All Other Systems: Reviewed and Negative Past Medical History - Past Medical History Previously Healthy: Yes Endocrine: Reports: Unknown Cardiovascular: Reports: Unknown Respiratory: Reports: Unknown Hematological: Reports: Unknown Gastrointestinal: Reports: Unknown Genitourinary: Reports: Unknown Neuro/Psych: Reports: Unknown Musculoskeletal: Reports: Unknown Cancer: Reports: Unknown Last Menstrual Period: NONE - Surgical History General Surgical History: Reports: Unknown - Family History Family History: Reports: Unknown - Social History Smoking Status: Current every day smoker Hx Substance Use: No Alcohol Screening: None Physical Exam - Physical Exam Appearance: Well-appearing, No pain distress, Well-nourished Eyes: EFRA, EOMI, Conjunctiva clear ENT: Ears normal, Nose normal, Oropharynx normal Respiratory: Airway patent, Breath sounds clear, Breath sounds equal, Respirations nonlabored Cardiovascular: RRR, Pulses normal, No rub, No murmur GI/: Soft, Nontender, No masses, Bowel sounds normal, No Organomegaly Musculoskeletal: ROM intact (LEFT SIDE NONE ON THE RIGHT SIDE ) Skin: Warm, Dry, Normal color Neurological: Sensation intact, Motor intact, Reflexes intact, Cranial nerves intact, Alert, Oriented Psychiatric: Affect appropriate, Mood appropriate Interpretation - Radiology Interpretation Radiology Interpretation By: Radiologist Radiology Results: Positive (CVA) Procedures - Intubation Indication: Present: Respiratory Insufficiency, Altered Mental Status, Airway Protection Medications: Yes: Succinylcholine, Versed Type of Tube Used: Endotracheal Tube Size: 7 Cricoid Pressure Used: Yes Tube Trevino Used: Yes Position of Tube at Lip: 19 Number of Attempts: 1 Suction Used: Yes Glidescope Used: No CO2 Detector Used: Yes Lung Sounds Equal Bilaterally: Yes Intubation Complications: Present: No complications Tube Inserted By: DIANNE GODFREY Tube Placement Verified by X-ray: Yes Physician Notification - Case Discussed Physician Notified: MALGORZATA Time of Notification: 07:50 (DO NOT GIVE TPA ) Physician Notified: Vanessa GODFREY Time of Notification: 08:20 (DO NOT GIVE TPA CONFIMRED BY VANESSA GODFREY ) Admit/Transition Orders Entered by ED Provider: Yes Critical Care Note - Critical Care Note Total Time (mins): 90 Course - Course Hematology/Chemistry: 12/26/17 07:19 12/26/17 07:19 Orders, Labs, Meds: Lab Review 12/26/17 12/26/17 12/26/17 07:19 07:19 07:19 WBC 18.49 H RBC 5.46 H Hgb 17.8 H Hct 51.5 H MCV 94.3 MCH 32.6 H MCHC 34.6 RDW Coeff of Simona 12.5 Plt Count 406 Immature Gran % (Auto) 0.4 Neut % (Auto) 82.8 Lymph % (Auto) 8.9 L Winston % (Auto) 7.7 Eos % (Auto) 0.0 Baso % (Auto) 0.2 Immature Gran # (Auto) 0.1 Neut # (Auto) 15.3 H Lymph # (Auto) 1.7 Winston # (Auto) 1.4 Eos # (Auto) 0.0 Baso # (Auto) 0.0 PT 10.4 INR 1.04 APTT 31.6 Sodium 136.7 L Potassium 3.75 Chloride 92.6 L Carbon Dioxide 34.8 H Anion Gap 13.05 BUN 18.8 H Creatinine 0.72 Estimated GFR (MDRD) 82.00 BUN/Creatinine Ratio 26.11 Glucose 141.5 H Calcium 10.13 Total Bilirubin 0.69 AST 46.3 H ALT 27.0 Alkaline Phosphatase 149.6 H Total Protein 8.83 H Albumin 4.95 Globulin 3.88 Albumin/Globulin Ratio 1.27 Orders Category Date Time Status EKG-(ED ONLY) Stat CARDIO 12/26/17 07:05 Ordered VENTILATOR Routine CARDIO 12/26/17 08:23 Ordered ED ACCUCHECK ASSESSMENT .ONCE EMERGENCY 12/26/17 07:05 Active ED APPLY O2 .ONCE EMERGENCY 12/26/17 07:05 Active ED IV/MEDIPORT/POWERPORT .ONCE EMERGENCY 12/26/17 07:05 Active ABG DAILY@0600 LAB 12/27/17 06:00 Ordered ABG DAILY@0600 LAB 12/28/17 06:00 Ordered ABG DAILY@0600 LAB 12/29/17 06:00 Ordered ABG DAILY@0600 LAB 12/30/17 06:00 Ordered ABG Stat LAB 12/26/17 08:23 Ordered CBC W/ AUTO DIFF Stat LAB 12/26/17 07:19 Completed COMPREHENSIVE METABOLIC PANEL Stat LAB 12/26/17 07:19 Completed PARTIAL THROMBOPLASTIN TIME Stat LAB 12/26/17 07:19 Completed PT WITH INR Stat LAB 12/26/17 07:19 Completed SPUTUM CULTURE Q3D LAB 12/29/17 06:00 Ordered SPUTUM CULTURE Q3D LAB 01/01/18 06:00 Ordered SPUTUM CULTURE Routine LAB 12/26/17 08:23 Ordered 0.9 % Sodium Chloride [Saline Flush] MEDS 12/26/17 07:04 Active 1 syr IVF PRN PRN Fentanyl Vial [Sublimaze] MEDS 12/26/17 07:49 Discontinued 100 mcg .ROUTE .STK-MED ONE Fentanyl Vial [Sublimaze] MEDS 12/26/17 08:12 Discontinued 50 mcg IVP ONCE STA Midazolam HCl Inj [Versed] MEDS 12/26/17 08:11 Discontinued 2.5 mg IVP ONCE STA Midazolam HCl Inj [Versed] MEDS 12/26/17 07:49 Discontinued 5 mg .ROUTE .STK-MED ONE Propofol Inj [Diprivan 20 ml Vial] MEDS 12/26/17 08:12 Discontinued 30 mg IVP ONCE STA Sodium Chloride 0.9% [Sodium Chloride] 1,000 ml MEDS 12/26/17 07:04 Active IV 30 mls/hr Succinylcholine Chloride [Anectine] MEDS 12/26/17 08:12 Discontinued 100 mg IVP ONCE STA Vecuronium Union [Norcuron] MEDS 12/26/17 08:01 Discontinued 10 mg .ROUTE .STK-MED ONE Vecuronium Union [Norcuron] MEDS 12/26/17 08:13 Discontinued 6 mg IVP ONCE STA CHEST, 1V AP ONLY Stat RADS 12/26/17 08:[address] HEAD W/O CONTRAST Stat RADS 12/26/17 07:03 Completed Medications Generic Name Dose Route Start Last Admin Trade Name Freq PRN Reason Stop Dose Admin Sodium Chloride 1,000 mls @ 30 mls/hr 12/26/17 07:04 12/26/17 07:25 Sodium Chloride IV 12/27/17 16:23 30 mls/hr .[id number] STA Administration Sodium Chloride 1 syr 12/26/17 07:04 12/26/17 07:25 Saline Flush IVF 1 syr PRN PRN Administration To flush IV Discontinued Medications Generic Name Dose Route Start Last Admin Trade Name Diana PRN Reason Stop Dose Admin Fentanyl Citrate 50 mcg 12/26/17 08:12 12/26/17 07:53 Sublimaze IVP 12/26/17 08:13 50 mcg ONCE STA Administration Midazolam HCl 2.5 mg 12/26/17 08:11 12/26/17 07:53 Versed IVP 12/26/17 08:12 2.5 mg ONCE STA Administration Propofol 30 mg 12/26/17 08:12 12/26/17 07:54 Diprivan 20 Ml Vial IVP 12/26/17 08:13 30 mg ONCE STA Administration Succinylcholine Chloride 100 mg 12/26/17 08:12 12/26/17 07:54 Anectine IVP 12/26/17 08:13 100 mg ONCE STA Administration Vecuronium Union 6 mg 12/26/17 08:13 12/26/17 08:03 Norcuron IVP 12/26/17 08:14 6 mg ONCE STA Administration Vital Signs: Temp Pulse Resp BP Pulse Ox 12/26/17 08:13 16 12/26/17 07:00 98.4 F 120 H 20 175/122 H 98 - NIH Stroke Scale 1a. Level of Consciousness: 1=Not alert, but arousable by minor stimulation to obey 1b. Level of Consciousness Questions: 2=Answers correctly to neither 1c. Level of Consciousness Commands: 2=Performs neither correctly 2. Best Gaze: 1=Partial gaze palsy, no forced gaze palsy 3. Visual: 0=No visual loss 4. Facial Palsy: 3=Complete paralysis (absence of movement upper or lower face) 5b. Motor Right Arm: 3=No effort against gravity, falls to bed 6a. Motor Left Le=Some effort against gravity, drifts to bed 6b. Motor Right Le=No effort against gravity, falls to bed 7. Limb Ataxia: 0=Absent 8. Sensory: 1=Mild to moderate sensory loss 9. Best Language: 2=Severe aphasia, has to guess to understand 10. Dysarthria: 2=Severe, cannot be understood 11. Extincion and Inattention: 1=Some extinction Stroke Scale Total: 23 Stroke Checklist for Activase Younger than 18 years of age: No Minor signs of stroke: No Stroke signs are rapidly improving: No Coma or stupor: Yes Seizure at the onset of stroke: No Clinic presentation suggestive of subarachnoid hemorrhage: No Intracranial hemorrhage on CT scan: No Puncture of a non-compressible artery or biopsy of any internal organ within the past 7 days: No Pericarditis, endocarditis, septic emboli, recent , or active inflammatory bowel disease: No Lactating or woman: No Stroke or severe head trauma within the previous 3 months: No Major surgery or serious trauma (besides head trauma) in the previous 14 days: No Gastroenterology or urinary tract hemorrhage in the previous 21 days: No Lumbar puncture in the previous 7 days: No Any history of intracranial hemorrhage: No Patients with a serious medical illness: Yes Active drug or alcohol abuse: No Acute myocardial infarction or post-myocardial infarction pericarditis: No Evidence of tumor, major infarct, or early signs of cerebral edema on CT scan: No Platelet count lower than 100,000: No PT higher than 15 sec or INR higher than 1.7: No PTT greater than 1.5 the control: No Systolic BP greater than 185 and/or diastolic BP greater than 110 mm Hg at the time of treatment: Yes Glucose lower than 50 mg/dl or greater than 400 mg/dl: No Departure - Departure Time of Disposition: 08:28 Disposition: TSF SHORT-TRM HOSP Discharge Problem: Altered mental status CVA (cerebral vascular accident) Qualifiers: CVA mechanism: unspecified Qualified Code(s): I63.9 - Cerebral infarction, unspecified Condition: Fair Pt referred to PMD for follow-up: Yes IPMP verified?: No Allergies/Adverse Reactions: Allergies Latex, Natural Rubber Adverse Reaction (Verified 05/03/16 20:54) Home Medications: Ambulatory Orders Aspirin [Lo-Dose Aspirin EC] 81 mg PO DAILY 05/03/16 Felodipine [Plendil] 10 mg PO DAILY 05/03/16 Fluoxetine HCl [Prozac] 20 mg PO DAILY 05/03/16 Furosemide [Lasix] 20 mg PO DAILY 05/03/16 Omeprazole [Prilosec] 20 mg PO DAILY 05/03/16 Calcium Carbonate/Vitamin D3 [Calcium 600 + Vit D 400 Tablet] 1 each PO DAILY Multivit,Calc,Mins/Iron/Folic [Thera-M Tablet] 1 each PO DAILY 05/15/16 Bupropion HCl [Wellbutrin Xl] 150 mg PO DAILY 05/16/16 Bupropion HCl [Wellbutrin Xl] 300 mg PO DAILY 05/16/16 Alprazolam [Xanax] 1 mg PO Q6HR #1 tablet 06/03/16 Budesonide [Pulmicort 0.5 mg/2 ml] 1 vial LINH RTBID #1 vial.linh 06/03/16 Docusate Sodium [Colace] 100 mg PO BID #1 capsule 06/03/16 Ferrous Sulfate 324 mg PO BID #1 tablet. 06/03/16 Folic Acid 1 mg PO DAILY #1 tablet 06/03/16 Hydrocodone Bit/Acetaminophen [[place] 7.5-325] 1 tab PO Q6HR PRN #1 tab 06/03/16 Ipratropium/Albuterol Neb [Duoneb] 1 vial NEB QID #1 vial.linh 06/03/16 Potassium Chloride [K-Dur] 20 meq PO BID #1 tab 06/03/16 Aripiprazole [Abilify] 10 mg PO DAILY 12/26/17 Transfer Form Completed: Yes Disposition Discussed With: Family ( ( MADE PT FULL CODE))
[2017-12-26] MEDS ORDERED: SUBLIMAZE ONE (07:49)
[2017-12-26] MEDS ORDERED: VERSED ONE (07:49)
[2017-12-26] MEDS ORDERED: NORCURON ONE (08:01)
--- NOTE | 2017-12-26 08:03 | ED.PDOC ---
Procedures - Intubation Medications: Yes: Succinylcholine, Versed, Propofol Type of Tube Used: Endotracheal Cricoid Pressure Used: Yes Tube Trevino Used: Yes Suction Used: No Glidescope Used: Yes CO2 Detector Used: Yes Lung Sounds Equal Bilaterally: Yes Intubation Complications: Present: No complications Tube Inserted By: Dr Mcfadden/ Vinay Silva CRNA Tube Placement Verified by X-ray: Yes Conscious Sedation - Pre-op Assessment Weight: 137 lb 12.623 oz Surgical History: NECK, WRIST, SHOULDER, - Medical History Past Medical History: COPD, Depression, Other Other History: OA, LUNG, EMPHYSEMA, - Physical Exam Heart Rate/Rhythm: Regular Rhythm, Regular Rate
[2017-12-26] MEDS ORDERED: VERSED IVP STA (08:11)
[2017-12-26] MEDS ORDERED: ANECTINE IVP STA (08:12)
[2017-12-26] MEDS ORDERED: DIPRIVAN 20 ML VIAL IVP STA (08:12)
[2017-12-26] MEDS ORDERED: SUBLIMAZE IVP STA ×2 (08:12→09:18)
[2017-12-26] MEDS ORDERED: NORCURON IVP STA ×2 (08:13→08:38)
--- NOTE | 2017-12-26 08:31 | DI ---
EXAM: Single AP view of the chest HISTORY: ET tube placement. COMPARISON: Chest x-ray 05/29/2016 FINDINGS: ET tube with tip 7cm above the jony. Cardiomediastinal silhouette is unchanged. There i s architectural distortion consistent with emphysema. There is no acute consolidation, nodule or mas s. There is minimal ground-glass in the left upper lobe. There are calcified granulomas in the left lung. The osseous structures are unremarkable. IMPRESSION: 1. ET tube with tip 7 cm above the jony. 2. Mild ground-glass noted in the left upper lobe may represent the area of infection/inflammation v ersus residual ground-glass from patient history of multiple left upper lobe pneumonia. 3. Scattered findings of emphysema/chronic obstructive pulmonary disease.
[2017-12-26] MEDS ORDERED: MANNITOL IV STA ×2 (08:32→08:35)
[2017-12-26] MEDS ORDERED: DIPRIVAN 100 ML VIAL 100 ML IV ONE (09:24)
[2017-12-26] MEDS ORDERED: DIPRIVAN 100 ML VIAL 1,000 MG in PREMIX INFUSION 100 ML VIAL 1 VIAL IV SCH (09:30)
[2017-12-26 09:34] VITALS: BP 173/126
== END 2017-12-26 10:10 | disposition short-term general hospital (02) ==
LOC: ED 07:00
DX: I63.9 Cerebral infarction, unspecified (principal); Z79.899 Other long term (current) drug therapy; F17.210 Nicotine dependence, cigarettes, uncomplicated; R53.1 Weakness; R41.82 Altered mental status, unspecified; R03.0 Elevated blood-pressure reading, without diagnosis of hypertension
CPT/HCPCS: 31500; 36415; 80053; 82803; 85025; 85610; 85730; 93005; 93010; 96365; 96368; 96375; 96376; 99291; 99292